=== PATIENT | female | born 1980 | race Caucasian/White ===

== ENCOUNTER 2020-08-07 06:31 | Emergency (ER) | payer MEDICAID, SELFPAY ==
[2020-08-07 06:36] VITALS: PULSE 105; RESP 20; TEMP 36.2; O2SAT 98
[2020-08-07 07:00] LABS: Basophils Percent Auto 0.3 % (0.2-1.2); Hematocrit 44.3 % (37.0-47.0); Hemoglobin 15.3 g/dL (12.0-15.0); Immature Granulocyte Absolute 0.04 K/mm3 (0.00-0.031); Immature Granulocyte Percent A 0.3 % (0-0.5); Lymphocytes Absolute Auto 2.14 K/mm3 (0.9-3.2); Lymphocytes Percent Auto 18.5 % (18.3-44.2); Mean Corpuscular HGB Conc 34.5 g/dl (32-36); Mean Corpuscular Hemoglobin 29.4 pg (26-34); Mean Corpuscular Volume 85.2 fl (80-100); Monocytes Absolute Auto 0.8 K/mm3 (0.1-0.6); Monocytes Percent Auto 6.7 % (2.6-8.5); Neutrophils Absolute Auto 8.6 K/mm3 (1.3-6.7); Neutrophils Percent Auto 74.2 % (45.5-73.1); Platelet Count Result 447 k/mm3 (150-375); Red Cell Distribution Width 12.5 % (11.5-14.5); White Blood Count 11.6 K/mm3 (4.5-10.0)
--- NOTE | 2020-08-07 07:13 | ED.NAVMDI ---
HPI - Nausea/Vomiting/Diarrhea General Chief complaint: Nausea/Vomiting/Diarrhea Stated complaint: n/v Time Seen by Provider: 08/07/20 07:06 Source: patient Mode of arrival: ambulatory Limitations: no limitations History of Present Illness HPI Narrative: Patient is a 40-year-old female who presents for evaluation of nausea and vomiting. Patient states she has had 48 hours of recurrent nausea and vomiting. She reports generalized abdominal discomfort without any focal pain. She reports nonbloody, nonbilious emesis and inability to tolerate any oral intake. She denies fever or chills. She denies diarrhea. She reports she has had some flatulence. She denies any cough, chest pain or shortness of breath. She denies any [place] urinary symptoms such as dysuria or hematuria. No vaginal bleeding. Patient states she has a history of PCOS but denies any lower pelvic pain or back pain. Patient states she has been unable to keep her bipolar medications down causing all of her symptoms to worsen. Related Data Allergies Allergy/AdvReac Type Severity Reaction Status Date / Time carbamazepine Allergy Unknown Abdominal Verified 08/07/20 06:42 Pain oxcarbazepine Allergy Unknown Unknown Verified 08/07/20 06:42 topiramate Allergy Unknown Unknown Verified 08/07/20 06:42 Review of Systems Review of Systems: Narrative: CONSTITUTIONAL: Denies fever, chills, or sweats. EYES: Denies visual changes, redness, or discharge. ENT: Denies rhinorrhea, congestion, sore throat, or otalgia. CARDIOVASCULAR: Denies chest pain, palpitations, or edema. RESPIRATORY: Denies cough or dyspnea. GASTROINTESTINAL: Reports generalized abdominal pain, nausea and vomiting without diarrhea. GENITOURINARY: Denies dysuria or hematuria. SKIN: Denies rash or itching. MUSCULOSKELETAL: Denies back pain, joint pain, or myalgia. NEUROLOGIC: Denies headache, numbness, or weakness. [facility] Past Medical History Medical History (Updated 08/07/20 @ 09:02 by Rosio Arguello MD) Bipolar disorder Surgical History Surgical History (Updated 08/07/20 @ 07:55 by Rosio Arguello MD) History of removal of ovarian cyst Social History Social History (Updated 08/07/20 @ 07:56 by Rosio Arguello MD) Smoking status: Current every day smoker Tobacco type: e-cigarettes/vaping Alcohol intake: never Substance use: never Living arrangements: with family Gender identity (if verbalized by the patient): Female Exam Narrative: Exam Narrative: GENERAL: Awake, alert, conversant HEAD: Normocephalic, atraumatic. EYES: PERRLA and EOMI. ENT: Nares clear, no rhinorrhea or epistaxis. Mucous membranes moist. NECK: Supple. CHEST: No respiratory distress, breathing even and non labored HEART: Regular rate, sinus rhythm ABDOMEN:Non distended, non tender EXTREMITIES: Normal range of motion. No edema. SKIN: Scattered ecchymoses to bilateral upper and lower extremities as well as excoriated areas consistent with pick tony NEURO:No focal deficits. Alert and oriented x3 Course Vital Signs Vital signs: Vital Signs Temperature 36.2 C L 08/07/20 06:36 Pulse Rate 105 H 08/07/20 06:36 Respiratory Rate 20 08/07/20 06:36 Pulse Oximetry 98 08/07/20 06:36 Temperature 36.2 C L 08/07/20 06:36 Pulse Rate 89 08/07/20 07:44 Respiratory Rate 17 08/07/20 07:44 Blood Pressure 161/98 H 08/07/20 07:44 Pulse Oximetry 100 08/07/20 07:44 MDM - Nausea/Vomiting/Diarrhea MDM Narrative Medical decision making narrative: Patient presented for intractable nausea and vomiting as well as some cramping abdominal pain. At the time of assessment, ABCs are intact and vital signs are stable. Patient does not have any truly focal tenderness on exam. Laboratory results show mild leukocytosis. No acute kidney injury or elevation in lipase. Mild hypokalemia. Patient refused nursing staff giving the patient IV fluids, antiemetic or pain medication. I spoke with the patient she
[2020-08-07 07:16] LABS: Alanine Aminotransferase 21 U/L (4-35); Albumin Level 4.9 g/dL (3.5-5.1); Alkaline Phosphatase 78 U/L (38-126); Anion Gap 14 mmol/L (8-16); Aspartate Amino Transferase 20 U/L (14-36); Bilirubin,Total 0.6 mg/dL (0.2-1.3); Blood Urea Nitrogen 17 mg/dL (7-17); Carbon Dioxide 28 mmol/L (22-30); Chloride 97 mmol/L (98-107); Estimated CRCL calculation 117 ml/min; Estimated Glomerular Filt Rate > 60; Glucose 149 mg/dL (65-105); Lipase 56 U/L (23-300); Sodium 139 mmol/L (137-145)
[2020-08-07 07:43] VITALS: BP 141/111; BP 162/93; BP 162/98; PULSE 106; PULSE 90; PULSE 99
[2020-08-07 07:44] VITALS: BP 161/98; PULSE 89; RESP 17; O2SAT 100
[2020-08-07 07:59] LABS: Add Urine Microscopic? YES; Appearance Urine Clear (Clear); Bilirubin Urine Negative (Negative); Blood Urine 1+ (Negative); Color Urine Yellow (Yellow); Glucose Urine UA Negative (Negative); Ketones Urine 2+ mg/dL (Negative); Leukocyte Esterase Ur Negative LEU/UL (Negative); Mucus Urine Heavy /lpf; Nitrate Urine Negative (Negative); Protein Urine 3+ mg/dL (Negative); Squamous Epithelial Cell Urine Many /hpf (Few); WBC Urine 0-3 /hpf
--- NOTE | 2020-08-07 08:50 | PC.NURSE ---
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 PT STILL STATES SHE WANTS TO LEAVE BECAUSE SHE HAS BEEN HERE 4 HOURS AND NOT BEED HELPED, AFTER CHECKIN PT HAS BEEN IN ED FOR 2 HOURS. LEATHA ROBERTS INFORMED AND WENT TO BEDSIDE, PT STILL ASKIN TO LEAVE, REFUSING TO LET MYSELF STORM SASH MAKERILIANA WAGNER TO REMOVE IV, NUCLEAR POWERPLANT MECHANIC CAROL AT BEDSIDE D/C'ING IV AND SENDING PT.
--- NOTE | 2020-08-07 09:06 | PC.NURSE ---
0852 PT STATING SHE JUST WANTED TO GO HOME,DIDN'T WANT TO STAY HERE ANY LONGER,MD AWARE. PT SIGNED OUT RE[facility] DC'D INTACT.
== END 2020-08-07 08:52 | disposition left against medical advice (07) ==
PROVIDERS: General Practice; Emergency Provider Emergency Medicine
DX: R11.2 Nausea with vomiting, unspecified (principal); F17.290 Nicotine dependence, other tobacco product, uncomplicated
CPT/HCPCS: 36415; 80053; 81001; 83690; 85025; 99283

== ENCOUNTER 2022-07-19 14:42 | Emergency (ER) | payer BC, SELFPAY ==
--- NOTE | ~2022-07-19 | CT_ITS ---
EXAMINATION: CT abdomen pelvis w con DATE: 07/19/2022 15:41 INDICATION: Right lower quadrant abdominal pain TECHNIQUE: Computed tomography (CT) of the abdomen and pelvis was performed with 100 CC Omnipaque 350 intravenous contrast. Automated exposure control and iterative reconstruction technique were employe d. Exam dose: 621.40 mGy-cm total exam DLP. COMPARISON: None. FINDINGS: Occasional calcified pulmonary granulomas and calcified right hilar nodes consistent with o ld pulmonary granulomatous disease. Calcified hepatic and splenic granulomas are also noted. The lung bases are clear of infiltrate or consolidation. Normal heart size. No pericardial or pleural effusion. Status post cholecystectomy. This likely accounts for mild prominence of the intrahepatic bile ducts. No hepatic, splenic, pancreatic, adrenal or suspicious renal space occupying mass lesion is detected . No urinary tract calculus or hydroureteronephrosis. The urinary bladder is unremarkable. Retroverte d uterus. No adnexal mass lesion is noted. There is atherosclerotic calcification but normal caliber of the abdominal aorta. No intraperitoneal or retroperitoneal or pelvic mass lesion or adenopathy or ascites. No evidence of appendicitis. No bowel obstruction, bowel wall thickening, pneumatosis or intraperiton eal free air. No suspicious osteolytic or osteoblastic lesions. Included skeletal structures are unremarkable. IMPRESSION: Status post cholecystectomy Retroverted uterus No evidence of appendicitis Reviewed, dictated and finalized at [facility]. Reviewed, dictated and finalized at [facility].
[2022-07-19 14:29] VITALS: BP 142/80; PULSE 98; RESP 16; TEMP 36.8; O2SAT 99
--- NOTE | 2022-07-19 14:43 | ED.ABDPAIN ---
HPI - Abdominal Pain General Chief Complaint: Abdominal Pain Stated Complaint: RLQ pain Time Seen by Provider: 07/19/22 14:43 Source: patient and family Mode of arrival: ambulatory Limitations: no limitations History of Present Illness HPI narrative: 42 years old white female came to the emergency room private car from home complaining of nausea, vomiting and diarrhea over the last 48 hours, vomiting on average 3-4 times a day, diarrhea is a lot. Today feeling much better, one-time episode of diarrhea, no vomiting. Patient denies any fever or chills or sick exposure. Today started having pain right lower abdomen radiating to right lower back, leg cramps. Related Data Allergies Allergy/AdvReac Type Severity Reaction Status Date / Time carbamazepine Allergy Unknown Abdominal Verified 08/07/20 06:42 Pain oxcarbazepine Allergy Unknown Unknown Verified 08/07/20 06:42 topiramate Allergy Unknown Unknown Verified 08/07/20 06:42 Review of Systems Review of Systems: All systems reviewed & are unremarkable except as noted in HPI and below PMFSH Past Medical History Medical History Bipolar disorder Surgical History Surgical History History of removal of ovarian cyst Social History Social History Smoking status: Current every day smoker Tobacco type: e-cigarettes/vaping Alcohol intake: never Substance use: never Gender identity (if verbalized by the patient): Female Exam Narrative: General appearance: Well-developed, well-nourished Skin: Normal color Head: Normocephalic, nontraumatic Eyes: Clear conjunctiva ENT: Oropharynx normal, ears normal, nose normal Neck: Supple, nontender Chest and respiratory: Airway patent, no respiratory distress, no accessory muscle use Heart: Regular rate/rhythm Abdomen: Soft, mild diffuse tenderness,, no organomegaly, quiet bowel sounds Vascular: Normal peripheral pulses, normal capillary refill. Musculoskeletal: Normal range of motion, nontender back Neurologic: Alert and oriented ?3, DELIVERER MERCHANDISE is normal as tested, no gross motor deficit Course Course Emergency Course: Work-up today showed no acute abnormality to explain patient condition. Gastroenteritis is my concern, is improving. Vital Signs Vital signs: Vital Signs Temperature 36.8 C 10/26/22 14:29 Pulse Rate 98 07/19/22 14:29 Respiratory Rate 16 07/19/22 14:29 Blood Pressure 142/80 H 07/19/22 14:29 Pulse Oximetry 99 07/19/22 14:29 Temperature 36.8 C 07/19/22 14:29 Pulse Rate 98 07/19/22 14:29 Respiratory Rate 16 07/19/22 14:29 Blood Pressure 142/80 H 07/19/22 14:29 Pulse Oximetry 99 07/19/22 14:29 MDM - Abdominal Pain Differential Diagnosis Differential diagnosis: Likely abdominal pain, acute appendicitis, constipation, diverticulitis and pancreatitis Lab Data Result diagrams: 07/19/22 14:54 07/19/22 14:54 Labs: Lab Results 07/19/22 07/19/22 07/19/22 Range/Units 14:54 14:54 14:54 WBC 8.0 (4.5-10.0) K/mm3 RBC 4.81 (4.2-5.4) M/mm3 Hgb 13.5 (12.0-15.0) g/dL Hct 41.5 (37.0-47.0) % MCV 86.3 (80-100) fl MCH 28.1 (26-34) pg MCHC 32.5 (32-36) g/dl RDW 13.7 (11.5-14.5) % Plt Count 372 (150-375) k/mm3 MPV 9.8 (7.4-10.4) fl Immature Gran % (Auto) 0.3 (0-0.5) % Neut % (Auto) 61.9 (45.5-73.1) % Lymph % (Auto) 28.1 (18.3-44.2) % [place] % (Auto) 8.3 (2.6-8.5) % Eos % (Auto) 0.6 (0-4.4) % Baso % (Auto) 0.8 (0.2-1.2) % Lymph # (Auto) 2.23
[2022-07-19] MEDS: HYDROmorphone HCL INJ (*CRX) 1 MG/ML SYR 0.5 MG IV PUSH (14:58)
[2022-07-19] MEDS: ONDANSETRON INJ 4 MG/2 ML VIAL IV PUSH (14:58)
[2022-07-19] MEDS: SODIUM CHLORIDE 0.9% IV 1,000 ML 999 ML IV CONT (14:58)
[2022-07-19 15:05] LABS: Basophils Absolute Auto 0.1 K/mm3 (0.0-0.1); Basophils Percent Auto 0.8 % (0.2-1.2); Eosinophils Absolute Auto 0.1 K/mm3 (0-0.3); Eosinophils Percent Auto 0.6 % (0-4.4); Hematocrit 41.5 % (37.0-47.0); Hemoglobin 13.5 g/dL (12.0-15.0); Immature Granulocyte Absolute 0.02 K/mm3 (0.00-0.031); Immature Granulocyte Percent A 0.3 % (0-0.5); Lymphocytes Absolute Auto 2.23 K/mm3 (0.9-3.2); Lymphocytes Percent Auto 28.1 % (18.3-44.2); Mean Corpuscular HGB Conc 32.5 g/dl (32-36); Mean Corpuscular Hemoglobin 28.1 pg (26-34); Mean Corpuscular Volume 86.3 fl (80-100); Mean Platelet Volume 9.8 fl (7.4-10.4); Monocytes Absolute Auto 0.7 K/mm3 (0.1-0.6); Monocytes Percent Auto 8.3 % (2.6-8.5); Neutrophils Absolute Auto 4.9 K/mm3 (1.3-6.7); Neutrophils Percent Auto 61.9 % (45.5-73.1); Platelet Count Result 372 k/mm3 (150-375); Red Blood Count 4.81 M/mm3 (4.2-5.4); Red Cell Distribution Width 13.7 % (11.5-14.5)
[2022-07-19 15:11] LABS: Add Urine Microscopic? YES; Appearance Urine Cloudy (Clear); Bacteria Urine Trace /hpf; Bilirubin Urine Negative (Negative); Blood Urine Negative (Negative); Color Urine Yellow (Yellow); Glucose Urine UA Negative (Negative); Ketones Urine 1+ mg/dL (Negative); Leukocyte Esterase Ur Negative LEU/UL (Negative); Mucus Urine Rare /lpf; Nitrate Urine Negative (Negative); Protein Urine Negative (Negative); Specific Grav Ur 1.017 (1.001-1.035); Squamous Epithelial Cell Urine Many /hpf (Few); Urobilinogen Urine Negative mg/dL (<2.0); WBC Urine 0-3 /hpf
[2022-07-19 15:17] LABS: Alanine Aminotransferase 25 U/L (6-35); Albumin Level 4.6 g/dL (3.5-5.1); Alkaline Phosphatase 56 U/L (38-126); Anion Gap 13 mmol/L (8-16); Aspartate Amino Transferase 22 U/L (14-36); Bilirubin,Total 0.3 mg/dL (0.2-1.3); Blood Urea Nitrogen 7 mg/dL (7-17); Calcium 8.8 mg/dL (8.4-10.2); Carbon Dioxide 23 mmol/L (22-30); Chloride 104 mmol/L (98-107); Estimated CRCL calculation 98 ml/min; Estimated Glomerular Filt Rate > 60; Glucose 113 mg/dL (65-110); Lipase 103 U/L (23-300); Potassium 3.5 mmol/L (3.4-5.0); Sodium 140 mmol/L (137-145)
[2022-07-19 16:45] VITALS: BP 142/90; PULSE 80; RESP 16; O2SAT 98
== END 2022-07-19 16:50 | disposition home or self-care (01) ==
PROVIDERS: Emergency Medicine; Emergency Provider Emergency Medicine
DX: K52.9 Noninfective gastroenteritis and colitis, unspecified (principal); F17.290 Nicotine dependence, other tobacco product, uncomplicated; N85.4 Malposition of uterus
CPT/HCPCS: 36415; 74177; 80053; 81001; 81025; 83690; 85025; 96361; 96374; 96375; 99284; J1170; J2405; J7030; Q9967

== ENCOUNTER 2022-07-23 05:58 | Emergency (ER) | payer BC, SELFPAY ==
--- NOTE | ~2022-07-23 | US_ITS ---
EXAMINATION: US pelvic complete w TV DATE: 07/23/2022 08:34 INDICATION: Right adnexal pain Comparison:No prior studies for comparison. TECHNIQUE: Multiple transabdominal and endovaginal sonographic images of the pelvis performed. FINDINGS: The uterus measures 7 x 4.4 x 5.2 cm. The endometrial complex measures 7 mm. The right ovary measures 3.8 x 1.4 x 1.5 cm and the left ovary is not visualized.. There are follicul ar changes in the right ovary. There is no free fluid in the pelvis. There are no abnormal masses seen on either side. IMPRESSION: 1. Unremarkable pelvic ultrasound. Reviewed, dictated and finalized at location [facility].
--- NOTE | ~2022-07-23 | CT_ITS ---
EXAMINATION: CT abdomen pelvis w con DATE: 07/23/2022 09:54 INDICATION: Right lower quadrant pain. Nausea and vomiting. TECHNIQUE: Computed tomography (CT) of the abdomen and pelvis was performed with 100 cc Omnipaque 350 intravenous contrast. The dose-length product was 689.61 mGy-cm. Automated exposure control and iter ative reconstruction technique were employed. COMPARISON: CT dated 07/19/2022 FINDINGS: Lung bases are unremarkable. No significant pleural or pericardial effusion. There is mild atherosclerosis of the aorta. The liver is unremarkable. Status post cholecystectomy with expected pr ominence of the bile ducts. There are calcified granulomas of the spleen. The pancreas, adrenal gland s and kidneys are unremarkable. No hydronephrosis. Bladder is unremarkable. No significant pelvic mas ses or fluid collections. Nonobstructive bowel gas pattern. The appendix is normal. No free air or fr ee fluid. There is mild thickening of the ascending and transverse colon, suspicious for colitis. IMPRESSION: 1. Mild thickening of the ascending and transverse colon, suspicious for colitis. Reviewed, dictated and finalized at location [facility]. IMPRESSION: 1. Mild thickening of the ascending and transverse colon, suspicious for coliti s.
[2022-07-23 06:46] VITALS: BP 168/90; PULSE 70; RESP 14; TEMP 36.9; O2SAT 98
[2022-07-23] MEDS: MORPHINE SULFATE (*CRX) 4 MG/ML INJ IV PUSH ×2 (07:53→10:38)
[2022-07-23] MEDS: ONDANSETRON INJ 4 MG/2 ML VIAL IV PUSH (07:53)
[2022-07-23 07:59] LABS: Basophils Absolute Auto 0.1 K/mm3 (0.0-0.1); Basophils Percent Auto 0.6 % (0.2-1.2); Eosinophils Absolute Auto 0.1 K/mm3 (0-0.3); Eosinophils Percent Auto 0.5 % (0-4.4); Hematocrit 40.1 % (37.0-47.0); Immature Granulocyte Absolute 0.03 K/mm3 (0.00-0.031); Immature Granulocyte Percent A 0.3 % (0-0.5); Lymphocytes Absolute Auto 1.88 K/mm3 (0.9-3.2); Lymphocytes Percent Auto 18.8 % (18.3-44.2); Mean Corpuscular HGB Conc 32.4 g/dl (32-36); Mean Corpuscular Hemoglobin 28.1 pg (26-34); Mean Corpuscular Volume 86.8 fl (80-100); Mean Platelet Volume 10.1 fl (7.4-10.4); Monocytes Absolute Auto 0.5 K/mm3 (0.1-0.6); Monocytes Percent Auto 4.6 % (2.6-8.5); Neutrophils Absolute Auto 7.5 K/mm3 (1.3-6.7); Neutrophils Percent Auto 75.2 % (45.5-73.1); Platelet Count Result 353 k/mm3 (150-375); Red Blood Count 4.62 M/mm3 (4.2-5.4); Red Cell Distribution Width 14.2 % (11.5-14.5)
[2022-07-23 08:00] LABS: Appearance Urine Clear (Clear); Bilirubin Urine Negative (Negative); Blood Urine Negative (Negative); Color Urine Yellow (Yellow); Glucose Urine UA Negative (Negative); Ketones Urine Negative (Negative); Leukocyte Esterase Ur Negative LEU/UL (Negative); Nitrate Urine Negative (Negative); Protein Urine Negative (Negative); Urobilinogen Urine 0.2 mg/dL (<2.0); pH Urine 8.5 (5.0-9.0)
[2022-07-23 08:02] LABS: Add Urine Microscopic? NO
[2022-07-23 08:08] LABS: Alanine Aminotransferase 20 U/L (6-35); Albumin Level 4.3 g/dL (3.5-5.1); Alkaline Phosphatase 58 U/L (38-126); Anion Gap 8 mmol/L (8-16); Aspartate Amino Transferase 21 U/L (14-36); Bilirubin,Total 0.3 mg/dL (0.2-1.3); Blood Urea Nitrogen 9 mg/dL (7-17); Calcium 9.2 mg/dL (8.4-10.2); Carbon Dioxide 26 mmol/L (22-30); Chloride 107 mmol/L (98-107); Estimated CRCL calculation 99 ml/min; Estimated Glomerular Filt Rate > 60; Glucose 105 mg/dL (65-110); Lipase 122 U/L (23-300); Potassium 3.7 mmol/L (3.4-5.0); Sodium 141 mmol/L (137-145)
[2022-07-23 08:23] VITALS: TEMP 36.5
[2022-07-23 10:11] VITALS: BP 174/86; PULSE 66; RESP 18; TEMP 36.5; O2SAT 100
--- NOTE | 2022-07-23 10:43 | ED.ABDPAIN ---
HPI - Abdominal Pain General Chief Complaint: Abdominal Pain Stated Complaint: RLQ abd pain, N/V/D Time Seen by Provider: 07/23/22 07:09 History of Present Illness HPI narrative: Patient is a 42-year-old female who presents ER with right-sided abdominal pain. Came back throughout the night. Cramping and the right upper quadrant moving to the right lower quadrant. Associated with nausea and vomiting as well as some diarrhea. She had similar symptoms a couple days ago. Has CT scan that was unremarkable. Patient reports history of PCOS. No vaginal bleeding or discharge. No urinary frequency urgency or dysuria. Has found no alleviating factors at home except for laying on her right side. Related Data Allergies Allergy/AdvReac Type Severity Reaction Status Date / Time carbamazepine Allergy Unknown Abdominal Verified 08/07/20 06:42 Pain oxcarbazepine Allergy Unknown Unknown Verified 08/07/20 06:42 topiramate Allergy Unknown Unknown Verified 08/07/20 06:42 Review of Systems Review of Systems: All systems reviewed & are unremarkable except as noted in HPI and below Constitutional: Constitutional: Denies chills, Denies fatigue and Denies fever(s) ENT: Denies nasal congestion and Denies sore throat Cardiovascular: Cardiovascular: Denies chest pain, Denies rapid heart rate and Denies radiating jaw, neck or arm pain Respiratory: Respiratory: Denies cough and Denies dyspnea Gastrointestinal: Gastrointestinal: Reports abdominal pain, Reports diarrhea, Reports nausea and Reports vomiting Genitourinary: Genitourinary: Denies dysuria and Denies flank pain Musculoskeletal: Musculoskeletal: Denies back pain and Denies myalgias PMFSH Past Medical History Medical History Bipolar disorder Surgical History Surgical History History of removal of ovarian cyst Social History Social History Smoking status: Current every day smoker Tobacco type: e-cigarettes/vaping Alcohol intake: never Substance use: never Gender identity (if verbalized by the patient): Female Exam Narrative: GENERAL: Uncomfortable-appearing, well-nourished, and in no acute distress. HEAD: Normocephalic, atraumatic. EYES: PERRLA and EOMI. ENT: Poor dentition mucous membranes moist. CHEST: Clear to auscultation. No respiratory distress. HEART: Regular rate and rhythm. Normal peripheral pulses. ABDOMEN: Soft, nontender, nondistended. EXTREMITIES: Normal range of motion. No edema. SKIN: Warm, dry, no rash. NEURO: Alert and oriented x3. PSYCH: Normal mood and affect. Course Course Emergency Course: Patient informed of results. Discussed treatment plan. Discharge home. Vital Signs Vital signs: Vital Signs Temperature 98.4 F 07/23/22 06:46 Pulse Rate 70 07/23/22 06:46 Respiratory Rate 14 07/23/22 06:46 Blood Pressure 168/90 H 07/23/22 06:46 Pulse Oximetry 98 07/23/22 06:46 Temperature 97.7 F 07/23/22 10:11 Pulse Rate 66 07/23/22 10:11 Respiratory Rate 18 07/23/22 10:11 Blood Pressure 174/86 H 07/23/22 10:11 Pulse Oximetry 100 07/23/22 10:11 MDM - Abdominal Pain Lab Data Result diagrams: 07/23/22 07:53 07/23/22 07:53 Labs: Lab Results 07/23/22 07/23/22 07/23/22 Range/Units 07:53 07:53 07:53 WBC 10.0 (4.5-10.0) K/mm3 RBC 4.62 (4.2-5.4) M/mm3 Hgb 13.0 (12.0-15.0) g/dL Hct 40.1 (37.0-47.0) % MCV 86.8 (80-100) fl MCH 28.1 (26-34) pg MCHC 32.4 (32-36) g/dl RDW 14.2 (11.5-14.5) % Plt Count 353 (150-375) k/mm3 MPV 10.1 (7.4-10.4) fl Immature Gran % (Auto) 0.3 (0-0.5) % Neut % (Auto) 75.2 H (45.5-73.1) % Lymph % (Auto) 18.8 (18.3-44.2) % [place] % (Auto) 4.6 (2.6-8.5) % Eos % (Auto) 0.5 (0-4.4) % Baso % (Auto) 0.6 (0.2-1.2) % Lymp
[2022-07-23] MEDS: DICYCLOMINE HCL INJ 20 MG/2 ML VIAL IM (11:22)
== END 2022-07-23 11:45 | disposition home or self-care (01) ==
PROVIDERS: Emergency Provider Emergency Medicine
DX: K52.9 Noninfective gastroenteritis and colitis, unspecified (principal); F17.290 Nicotine dependence, other tobacco product, uncomplicated
CPT/HCPCS: 36415; 74177; 76830; 76856; 80053; 81003; 81025; 83690; 85025; 96372; 96374; 96375; 96376; 99284; J0500; J2270; J2405; Q9967

== ENCOUNTER 2022-07-30 05:11 | Emergency (ER) | payer BC, SELFPAY ==
[2022-07-30 05:10] VITALS: BP 174/94; PULSE 96; RESP 20; TEMP 36.7; O2SAT 99
--- NOTE | 2022-07-30 05:36 | ED.GENADULT ---
HPI - General Adult General Chief complaint: Abdominal Pain Stated complaint: abd pain History of Present Illness HPI narrative: This is a 42-year-old female presenting ED with right lower quadrant abdominal pain. patient says the pain is been going on for 2 weeks. It is a stabbing in the right lower quadrant that radiates to her back. It is 8/10 in intensity. The pain is always there but fluctuates in intensity. She has never experienced pain like this before. patient says the pain is improved by lying down. It is worsened by eating. Patient reports some nausea but no vomiting. She did have an episode of diarrhea. She denies fever or chills. Related Data Allergies Allergy/AdvReac Type Severity Reaction Status Date / Time carbamazepine Allergy Unknown Abdominal Verified 07/30/22 05:17 Pain oxcarbazepine Allergy Unknown Unknown Verified 07/30/22 05:17 topiramate Allergy Unknown Unknown Verified 07/30/22 05:17 Review of Systems Review of Systems: CONSTITUTIONAL: Denies night sweats. EYES: No eye pain ENT: Denies rhinorrhea CARDIOVASCULAR: Denies palpitations RESPIRATORY: Denies hemoptysis GASTROINTESTINAL: Denies hematemesis GENITOURINARY: Denies hematuria. SKIN: Denies rash MUSCULOSKELETAL: Denies myalgia. NEUROLOGIC: Denies weakness. PSYCHIATRIC: Denies delusions PMFSH Past Medical History Medical History Bipolar disorder Surgical History Surgical History History of removal of ovarian cyst Social History Social History Smoking status: Current every day smoker Tobacco type: e-cigarettes/vaping Alcohol intake: never Substance use: never Gender identity (if verbalized by the patient): Female Exam Narrative: APPEARANCE: Patient appears uncomfortable Head: atraumatic. Poor dentition EYES: EOMI, NOSE: Atraumatic NECK: Trachea midline RESPIRATORY: No increased rate of breathing CARDIOVASCULAR: RRR, ABDOMINAL: abdomen is soft, with mild tenderness in the right lower quadrant with no guarding or rebound. MUSCULOSKELETAl: No obvious deformities NEURO: Alert. Moving 4/4 extremities SKIN:: Warm, dry. Normal color, healing scabs over her right hand PSYCHIATRIC: Normal affect Course Vital Signs Vital signs: Vital Signs Temperature 98.1 F 07/30/22 05:10 Pulse Rate 96 07/30/22 05:10 Respiratory Rate 20 07/30/22 05:10 Blood Pressure 174/94 H 07/30/22 05:10 Pulse Oximetry 99 07/30/22 05:10 Oxygen Delivery Room Air 07/30/22 05:10 Temperature 98.1 F 07/30/22 05:10 Pulse Rate 96 07/30/22 05:10 Respiratory Rate 20 07/30/22 05:10 Blood Pressure 174/94 H 07/30/22 05:10 Pulse Oximetry 99 07/30/22 05:10 Oxygen Delivery Room Air 07/30/22 05:10 Medical Decision Making MDM Narrative Medical decision making narrative: this is a 42-year-old female who re-presented to the ED with abdominal pain. This is the 3rd time she has been seen here for the same complaint. She has received [address] scans a transvaginal ultrasound. Latest CT scan did show some mild thickening of the ascending and transverse colon which are consistent with where the patient's symptoms are. Her abdominal exam is benign. I do not believe there is a benefit to exposing her to more radiation. She was treated with dicyclomine at that time but has not been able to control her pain. Basic lab work has been ordered. All the patient's lab work was normal. Her vital signs are normal. Her abdominal exam is still benign. She has not developed a fever white blood cell count indicating she may need need antibiotics for her colitis.She is tearful when I go speak with her saying that her pain is unbearable. Patient will be given a script of [place], dicyclomine and zofran. She would also like a note for work. Patient nemo
[2022-07-30] MEDS: HYDROcodone/acetaminophen (*CRX) 5-325 MG TABLET 1 TAB PO (05:39)
[2022-07-30 05:41] LABS: Glucose Point of Care 89 mg/dl (65-105)
[2022-07-30 05:54] LABS: Basophils Absolute Auto 0.1 K/mm3 (0.0-0.1); Eosinophils Absolute Auto 0.1 K/mm3 (0-0.3); Eosinophils Percent Auto 2.1 % (0-4.4); Hemoglobin 12.6 g/dL (12.0-15.0); Immature Granulocyte Absolute 0.02 K/mm3 (0.00-0.031); Immature Granulocyte Percent A 0.3 % (0-0.5); Lymphocytes Absolute Auto 1.93 K/mm3 (0.9-3.2); Lymphocytes Percent Auto 33.2 % (18.3-44.2); Mean Corpuscular HGB Conc 31.5 g/dl (32-36); Mean Corpuscular Volume 88.9 fl (80-100); Mean Platelet Volume 10.1 fl (7.4-10.4); Monocytes Absolute Auto 0.4 K/mm3 (0.1-0.6); Neutrophils Absolute Auto 3.3 K/mm3 (1.3-6.7); Neutrophils Percent Auto 56.4 % (45.5-73.1); Platelet Count Result 358 k/mm3 (150-375); Red Cell Distribution Width 14.1 % (11.5-14.5); White Blood Count 5.8 K/mm3 (4.5-10.0)
[2022-07-30 06:04] LABS: Lipase 98 U/L (23-300)
[2022-07-30 06:05] LABS: Alanine Aminotransferase 26 U/L (6-35); Albumin Level 4.2 g/dL (3.5-5.1); Alkaline Phosphatase 57 U/L (38-126); Anion Gap 8 mmol/L (8-16); Aspartate Amino Transferase 27 U/L (14-36); Bilirubin,Total 0.2 mg/dL (0.2-1.3); Blood Urea Nitrogen 12 mg/dL (7-17); Calcium 8.7 mg/dL (8.4-10.2); Carbon Dioxide 28 mmol/L (22-30); Chloride 106 mmol/L (98-107); Estimated CRCL calculation 87 ml/min; Estimated Glomerular Filt Rate > 60; Glucose 100 mg/dL (65-110); Sodium 142 mmol/L (137-145)
[2022-07-30 06:06] LABS: Appearance Urine Clear (Clear); Bilirubin Urine Negative (Negative); Blood Urine 2+ (Negative); Color Urine Yellow (Yellow); Glucose Urine UA Negative (Negative); Ketones Urine Negative (Negative); Leukocyte Esterase Ur Negative LEU/UL (Negative); Nitrate Urine Negative (Negative); Protein Urine Negative (Negative); Urobilinogen Urine 0.2 mg/dL (<2.0)
[2022-07-30 06:15] LABS: Mucus Urine Rare /lpf; RBC Urine 0-2 /hpf (0-2); Squamous Epithelial Cell Urine Occasional /hpf (Few); WBC Urine 0-3 /hpf
[2022-07-30 06:18] LABS: Add Urine Microscopic? YES
[2022-07-30 06:53] VITALS: BP 148/87; PULSE 74; RESP 16; O2SAT 100
== END 2022-07-30 06:55 | disposition home or self-care (01) ==
PROVIDERS: Emergency Provider Emergency Medicine
DX: K52.9 Noninfective gastroenteritis and colitis, unspecified (principal); F17.290 Nicotine dependence, other tobacco product, uncomplicated
CPT/HCPCS: 36415; 80053; 81001; 81025; 82948; 83690; 83735; 85025; 99283; A9270

== ENCOUNTER 2022-08-02 16:02 | Emergency (ER) | payer BC, SELFPAY ==
--- NOTE | ~2022-08-02 | CT_ITS ---
EXAMINATION: CT abdomen pelvis w con DATE: 08/02/2022 20:37 INDICATION: low abd pain, diarrhea, vomiting TECHNIQUE: Computed tomography (CT) of the abdomen and pelvis was performed with 100 mL Omnipaque-350 intravenous contrast. Automated exposure control and iterative reconstruction technique were employe d. The dose-length product was 668.86 mGy-cm. COMPARISON: 07/23/2022. FINDINGS: Lower thorax: Unremarkable Liver: Normal. Biliary/Gallbladder: Gallbladder is absent. No bile duct dilation. Pancreas: No mass or duct dilation. Spleen: Normal. Adrenals:No mass. Kidneys: No mass, stone, or hydronephrosis. GI tract: No small or large bowel dilation. Interval resolution of the previously described transvers e colon edema. Normal appendix. Mesentery/Peritoneum: No ascites, mass, or free air. Retroperitoneum: No mass. Pelvis: Pelvic organs are within normal limits. Soft Tissues: Soft tissues and body wall unremarkable. Bones: No acute osseous finding. IMPRESSION: No acute abdominopelvic process detected. Reviewed, dictated and finalized at location K. CTION MOLDER
--- NOTE | ~2022-08-02 | XR_ITS ---
EXAMINATION: XR chest 2V Exam Date/Time: 08/02/2022 18:30 OIL FIELD PUMPER HISTORY: chest pressure x today. pt notes having anxiety all day Comparison: 04/09/2015. RESULT: Lines, tubes, and devices: None. Lungs and pleura: Clear. Right midlung calcified granuloma Cardiomediastinal silhouette: Stable. Other: No acute osseous or upper abdominal finding. IMPRESSION: No acute cardiopulmonary process. Reviewed, dictated and finalized at location K. FIELD PUMPER
[2022-08-02 17:44] VITALS: BP 169/99; PULSE 108; RESP 14; TEMP 36.8; O2SAT 98
--- NOTE | 2022-08-02 17:47 | ECG_ITS ---
Measurements Intervals [place] Rate: 102 P: 78 IL: 136 QRS: 38 QRSD: 85 T: 27 QT: 341 QTc: 446 Interpretive Statements SINUS TACHYCARDIA POSSIBLE RIGHT ATRIAL ENLARGEMENT BORDERLINE ST ABNORMALITY- ANTEROLAT/INF LEADS BASELINE ARTIFACT- I, II, III, AVR, AVL BORDERLINE ECG NO PREVIOUS ECG AVAILABLE FOR COMPARISON Electronically Signed On 08-02-2022 20:07:20 [employer] by Venkat Zapata D.O.
[2022-08-02 18:09] LABS: Basophils Absolute Auto 0.1 K/mm3 (0.0-0.1); Basophils Percent Auto 0.4 % (0.2-1.2); Eosinophils Absolute Auto 0.1 K/mm3 (0-0.3); Eosinophils Percent Auto 0.5 % (0-4.4); Hematocrit 42.4 % (37.0-47.0); Immature Granulocyte Absolute 0.06 K/mm3 (0.00-0.031); Immature Granulocyte Percent A 0.4 % (0-0.5); Lymphocytes Absolute Auto 2.59 K/mm3 (0.9-3.2); Lymphocytes Percent Auto 19.3 % (18.3-44.2); Mean Corpuscular Hemoglobin 28.1 pg (26-34); Mean Corpuscular Volume 85.1 fl (80-100); Monocytes Absolute Auto 0.9 K/mm3 (0.1-0.6); Monocytes Percent Auto 6.6 % (2.6-8.5); Neutrophils Absolute Auto 9.8 K/mm3 (1.3-6.7); Neutrophils Percent Auto 72.8 % (45.5-73.1); Platelet Count Result 507 k/mm3 (150-375); Red Blood Count 4.98 M/mm3 (4.2-5.4); Red Cell Distribution Width 14.1 % (11.5-14.5); White Blood Count 13.5 K/mm3 (4.5-10.0)
[2022-08-02 18:20] LABS: Alanine Aminotransferase 26 U/L (6-35); Albumin Level 4.9 g/dL (3.5-5.1); Alkaline Phosphatase 64 U/L (38-126); Anion Gap 11 mmol/L (8-16); Aspartate Amino Transferase 24 U/L (14-36); Bilirubin,Total 0.4 mg/dL (0.2-1.3); Blood Urea Nitrogen 11 mg/dL (7-17); Calcium 9.4 mg/dL (8.4-10.2); Carbon Dioxide 23 mmol/L (22-30); Chloride 105 mmol/L (98-107); Estimated CRCL calculation 99 ml/min; Estimated Glomerular Filt Rate > 60; Glucose 111 mg/dL (65-110); Lipase 93 U/L (23-300); Potassium 3.5 mmol/L (3.4-5.0); Sodium 139 mmol/L (137-145)
[2022-08-02 18:22] LABS: Partial Thromboplastin Time 31.5 SECONDS (22.3-36.8)
[2022-08-02 18:32] LABS: Troponin I < 0.012 ng/mL (0.000-0.034)
--- NOTE | 2022-08-02 19:49 | ED.ANXIETY ---
HPI - Anxiety General Chief Complaint: Anxiety <Summer Harmon PA-C - Last Filed: 08/02/22 22:27> Stated Complaint: anxiety attack <SATISH Gomez Last Filed: 08/02/22 22:27> Time Seen by Provider: 08/02/22 19:32 <SATISH Gomez Last Filed: 08/02/22 22:27> Source: patient <SATISH Gomez Last Filed: 08/02/22 22:27> Mode of arrival: ambulatory <SATISH Gomez Last Filed: 08/02/22 22:27> Limitations: no limitations <SATISH Gomez Last Filed: 08/02/22 22:27> History of Present Illness HPI narrative: This is a 42-year-old female that presents to the emergency department for anxiety. Reports worsening anxiety due to health issues. She has history of anxiety and bipolar depression. She is not currently on any medications for this. She has no thoughts of harming herself or anyone else. Reports that she has been having trouble with abdominal pain over the last couple of weeks. Her 5 years ago from GI issues that has made her quite anxious. She was seen in the ER 3 days ago and discharged with Sirena Lagunas and [place]. She has been taking these medications with little relief. Reports persistent lower abdominal pain and vomiting. Also reports some intermittent diarrhea. Denies fevers, shortness of breath, dysuria, hematochezia, melena. <SATISH Gomez Last Filed: 08/02/22 22:27> Related Data Allergies/Adverse Reactions: Allergies Allergy/AdvReac Type Severity Reaction Status Date / Time carbamazepine Allergy Unknown Abdominal Verified 07/30/22 05:17 Pain oxcarbazepine Allergy Unknown Unknown Verified 07/30/22 05:17 topiramate Allergy Unknown Unknown Verified 07/30/22 05:17 <SATISH Gomez Last Filed: 08/02/22 22:27> Review of Systems Review of Systems: CONSTITUTIONAL: Denies fever CARDIOVASCULAR: Reports chest pain RESPIRATORY: Denies dyspnea. GASTROINTESTINAL: Reports abdominal pain, nausea, vomiting, and diarrhea. GENITOURINARY: Denies dysuria or hematuria. PSYCHIATRIC: Reports anxiety and depression. <Summer Harmon PA-C - Last Filed: 08/02/22 22:27> All systems reviewed & are unremarkable except as noted in HPI and below <Summer Harmon PA-C - Last Filed: 08/02/22 22:27> PMFSH Past Medical History Medical History: Medical History Bipolar disorder <Summer Harmon PA-C - Last Filed: 08/02/22 22:27> Surgical History Surgical History: Surgical History History of removal of ovarian cyst <Summer Harmon PA-C - Last Filed: 08/02/22 22:27> Social History Social History: Social History (Updated 08/02/22 @ 19:53 by Summer Harmon PA-C) Smoking status: Current every day smoker Tobacco type: e-cigarettes/vaping Alcohol intake: never Substance use: current Substance use type: marijuana Gender identity (if verbalized by the patient): Female <Summer Harmon PA-C - Last Filed: 08/02/22 22:27> Exam Narrative: GENERAL: Well-appearing, well-nourished, anxious HEAD: Normocephalic, atraumatic. EYES: EOMI. CHEST: Clear to auscultation. No respiratory distress. No wheezes rales or rhonchi HEART: Regular rate and rhythm. No murmur heard. Normal peripheral pulses. ABDOMEN: Soft, nondistended, normal active bowel sounds. Mild tenderness to palpation throughout the right side of the abdomen, without guarding EXTREMITIES: Normal range of motion. No edema. SKIN: Warm, dry, no rash. NEURO: No focal deficits. Alert and oriented x3. PSYCH: Anxious, tearful <Summer Harmon PA-C - Last Filed: 08/02/22 22:27> Course FULL TIME PARAMEDIC/PA Physician Supervision For this patient encounter, I reviewed the FULL TIME PARAMEDIC or PA documentation, treatment plan, and medical decision making <Jaydon Ruiz MD - Last Filed: 08/03/22 01:04> Vital Signs Vital signs: Vital Signs
[2022-08-02] MEDS: LORazepam (*CRX) 0.5 MG TABLET PO (20:01)
== END 2022-08-02 22:34 | disposition home or self-care (01) ==
PROVIDERS: Emergency Medicine; Emergency Provider Emergency Medicine; PCP Physician Assistant
DX: F41.9 Anxiety disorder, unspecified (principal); G89.29 Other chronic pain; R10.9 Unspecified abdominal pain; F31.9 Bipolar disorder, unspecified; F17.210 Nicotine dependence, cigarettes, uncomplicated; R00.0 Tachycardia, unspecified; R94.31 Abnormal electrocardiogram [ECG] [EKG]
CPT/HCPCS: 36415; 71046; 74177; 80053; 81025; 83690; 84484; 85025; 85610; 85730; 93005; 99284; A9270; Q9967

== ENCOUNTER 2023-03-26 16:12 | Emergency (ER) | payer BC, SELFPAY ==
--- NOTE | ~2023-03-26 | XR_ITS ---
XR chest 2V DATE: 03/26/2023 16:23 INDICATION: Left chest pain TECHNIQUE: PA and lateral views COMPARISON: 08/12/2022 PA and lateral chest FINDINGS: Normal heart size. Aortic arch calcification. No hilar or mediastinal enlargement. Calcifie d granuloma, right mid lung and calcified right hilar nodes, consistent with old granulomatous diseas e. No pulmonary infiltrate or consolidation, pleural effusion or pulmonary vascular congestion or pneumo thorax. IMPRESSION: No active cardiopulmonary disease Reviewed, dictated and finalized at location A.
[2023-03-26 16:08] VITALS: BP 167/126; PULSE 107; RESP 26; TEMP 36.3; O2SAT 100
--- NOTE | 2023-03-26 16:14 | ECG_ITS ---
Measurements Intervals [place] Rate: 98 P: 54 OR: 153 QRS: 16 QRSD: 94 T: 10 QT: 363 QTc: 465 Interpretive Statements SINUS RHYTHM BORDERLINE ST-T WAVE ABNORMALITY- ANT/INF LEADS BASELINE ARTIFACT- I, II, III, AVR, AVL, AVF BORDERLINE ECG COMPARED TO ECG 08/02/2022 18:01:11 SINUS RHYTHM NOW PRESENT Electronically Signed On 03-26-2023 17:11:06 CDT by Venkat Zapata D.O.
[2023-03-26] MEDS: KETOROLAC 30 MG/ML VIAL (*BKC) IV PUSH (16:23)
[2023-03-26 16:24] VITALS: BP 147/87; PULSE 108; RESP 18; O2SAT 100
[2023-03-26 16:26] LABS: Basophils Absolute Auto 0.1 K/mm3 (0.0-0.1); Basophils Percent Auto 0.7 % (0.2-1.2); Eosinophils Absolute Auto 0.1 K/mm3 (0-0.3); Eosinophils Percent Auto 0.7 % (0-4.4); Hematocrit 36.7 % (37.0-47.0); Hemoglobin 12.3 g/dL (12.0-15.0); Immature Granulocyte Absolute 0.02 K/mm3 (0.00-0.031); Immature Granulocyte Percent A 0.2 % (0-0.5); Lymphocytes Absolute Auto 3.47 K/mm3 (0.9-3.2); Lymphocytes Percent Auto 39.2 % (18.3-44.2); Mean Corpuscular HGB Conc 33.5 g/dl (32-36); Mean Corpuscular Hemoglobin 28.5 pg (26-34); Mean Corpuscular Volume 85.2 fl (80-100); Mean Platelet Volume 9.7 fl (7.4-10.4); Monocytes Absolute Auto 0.8 K/mm3 (0.1-0.6); Monocytes Percent Auto 8.8 % (2.6-8.5); Neutrophils Absolute Auto 4.5 K/mm3 (1.3-6.7); Neutrophils Percent Auto 50.4 % (45.5-73.1); Platelet Count Result 423 k/mm3 (150-375); Red Blood Count 4.31 M/mm3 (4.2-5.4); Red Cell Distribution Width 14.3 % (11.5-14.5); White Blood Count 8.9 K/mm3 (4.5-10.0)
[2023-03-26 16:33] LABS: Alanine Aminotransferase 22 U/L (6-35); Albumin Level 4.2 g/dL (3.5-5.1); Alkaline Phosphatase 58 U/L (38-126); Anion Gap 5 mmol/L (8-16); Aspartate Amino Transferase 23 U/L (14-36); Bilirubin,Total 0.3 mg/dL (0.2-1.3); Blood Urea Nitrogen 12 mg/dL (7-17); Calcium 9.5 mg/dL (8.4-10.2); Carbon Dioxide 32 mmol/L (22-30); Chloride 100 mmol/L (98-107); Estimated CRCL calculation 113 ml/min; Estimated Glomerular Filt Rate > 60; Glucose 103 mg/dL (65-110); Potassium 2.9 mmol/L (3.4-5.0); Prothrombin Time 13.1 Seconds (11.1-14.7); Sodium 137 mmol/L (137-145)
[2023-03-26 16:40] LABS: D Dimer < 0.27 ug/mL (<0.48)
[2023-03-26 16:45] LABS: Troponin I < 0.012 ng/mL (0.000-0.034)
--- NOTE | 2023-03-26 17:41 | ED.GENADULT ---
HPI - General Adult General Chief complaint: Chest Pain Stated complaint: CHEST PAIN History of Present Illness HPI narrative: Patient is a 42-year-old female who presents ER with left-sided chest pain. Sharp. Began in the last 24 hours. Also has some pain in the left posterior back. No pain with deep breath. No exertional chest pain or dyspnea. No hemoptysis or productive cough. Denies fevers or chills or sweats. No known trauma. Patient tried some ibuprofen last night before going to bed and may have had some mild improvement. Reports family history of heart disease but no personal history of heart disease. No other recent changes at home. Related Data Allergies Allergy/AdvReac Type Severity Reaction Status Date / Time carbamazepine Allergy Unknown Abdominal Verified 03/26/23 16:22 Pain oxcarbazepine Allergy Unknown Unknown Verified 03/26/23 16:22 topiramate Allergy Unknown Unknown Verified 03/26/23 16:22 Review of Systems Review of Systems: All systems reviewed & are unremarkable except as noted in HPI and below Constitutional: Constitutional: Denies chills, Denies fatigue and Denies fever(s) ENT: Denies nasal congestion and Denies sore throat Cardiovascular: Cardiovascular: Reports chest pain, Denies rapid heart rate and Reports radiating jaw, neck or arm pain Respiratory: Respiratory: Denies chest congestion, Denies cough, Denies dyspnea and Denies wheezing Gastrointestinal: Gastrointestinal: Denies abdominal pain, Denies nausea and Denies vomiting Genitourinary: Genitourinary: Denies nocturia and Denies dysuria Musculoskeletal: Musculoskeletal: Reports back pain, Denies myalgias, Denies arthralgias and Denies joint swelling PMFSH Past Medical History Medical History Bipolar disorder Surgical History Surgical History History of removal of ovarian cyst Social History Social History (Updated 08/02/22 @ 19:53 by Summer Harmon PA-C) Smoking status: Current every day smoker Tobacco type: e-cigarettes/vaping Alcohol intake: never Substance use: current Substance use type: marijuana Living arrangements: with family Gender identity (if verbalized by the patient): Female Exam Narrative: GENERAL: Well-appearing, well-nourished, and in no acute distress. HEAD: Normocephalic, atraumatic. ENT: Mucous membranes moist. Poor dentition. NECK: Supple. CHEST: Clear to auscultation. No respiratory distress. Tender palpation left anterior chest wall with light palpation. HEART: Regular rate and rhythm. Normal peripheral pulses. ABDOMEN: Soft, nontender, nondistended. EXTREMITIES: Normal range of motion. No edema. SKIN: Warm, dry, no rash. NEURO: Alert and oriented x3. PSYCH: Normal mood and affect. Course Course Emergency Course: Patient resting comfortably. Tachycardia resolved. EKG normal. Troponin testing negative as is D-dimer. Pain is acutely reproducible with light palpation to the chest wall. Patient felt appropriate for discharge home with pain control. Vital Signs Vital signs: Vital Signs Temperature 97.4 F L 03/26/23 16:08 Pulse Rate 107 H 03/26/23 16:08 Respiratory Rate 26 H 03/26/23 16:08 Blood Pressure 167/126 H 03/26/23 16:08 Pulse Oximetry 100 03/26/23 16:08 Oxygen Delivery Room Air 03/26/23 16:08 Temperature 97.4 F L 03/26/23 16:08 Pulse Rate 108 H 03/26/23 16:24 Respiratory Rate 18 03/26/23 16:24 Blood Pressure 147/87 H 03/26/23 16:24 Pulse Oximetry 100 03/26/23 16:24 Oxygen Delivery Room Air 03/26/23 16:14 Medical Decision Making Vital Signs Vital Signs: Vital Signs Temperature 97.4 F L 03/26/23 16:08 Pulse Rate 107 H 03/26/23 16:08 Respiratory Rate 26 H 03/26/23 16:08 Blood Pressure 167/126 H 03/26/23 16:08 Pulse Oximetry 100 03/26/23 16:08 Oxygen Delivery Room Air 03/26/23 16
[2023-03-26] MEDS: MORPHINE SULFATE (*CRX) 2 MG/ML INJ IV PUSH (17:54)
[2023-03-26 18:05] VITALS: BP 130/76; PULSE 85; RESP 20; O2SAT 100
== END 2023-03-26 18:10 | disposition home or self-care (01) ==
PROVIDERS: Emergency Provider Emergency Medicine
DX: R07.89 Other chest pain (principal); F17.290 Nicotine dependence, other tobacco product, uncomplicated; R94.31 Abnormal electrocardiogram [ECG] [EKG]
CPT/HCPCS: 36415; 71046; 80053; 84484; 85025; 85380; 85610; 85730; 93005; 96374; 96375; 99284; J1885; J2270

== ENCOUNTER 2023-04-09 04:59 | Emergency (ER) | payer BC, SELFPAY ==
--- NOTE | ~2023-04-09 | XR_ITS ---
Portable chest x-ray Comparison: 03/26/2023 Clinical History: Chest pain Findings: Calcified right midlung granuloma present. Lungs are otherwise clear. No pleural effusion or pneumothorax. Cardiomediastinal silhouette is stable. Bones and soft tissues are unremarkable. Impression: No acute abnormality. Reviewed, dictated and finalized at [facility]. Impression: No acute abnormality.
[2023-04-09 04:59] VITALS: BP 164/96; PULSE 107; RESP 16; TEMP 36.6; O2SAT 100
--- NOTE | 2023-04-09 05:04 | ECG_ITS ---
Measurements Intervals [place] Rate: 87 P: 71 CT: 139 QRS: 25 QRSD: 90 T: 45 QT: 360 QTc: 433 Interpretive Statements SINUS RHYTHM WITH SINUS ARRHYTHMIA BORDERLINE ST ABNORMALITY- ANTEROLATERAL/INF LEADS BORDERLINE ECG COMPARED TO ECG 03/26/2023 16:16:47 SINUS ARRHYTHMIA NOW PRESENT Electronically Signed On 04-09-2023 6:55:14 CDT by Venkat Zapata D.O.
--- NOTE | 2023-04-09 05:21 | ED.GENADULT ---
HPI - General Adult General Chief complaint: Anxiety Stated complaint: sob Time Seen by Provider: 04/09/23 05:06 History of Present Illness HPI narrative: Patient is a 42-year-old female who presents to Emergency Department with a chief complaint of anxiety. Patient reports has been under a lot of stress lately at work and is being harassed by individuals at work the patient states that she is been off of her anxiety medicines for approximately 1 year and reports that she is going to see her primary later this week to start back on her anxiety medicine patient reports that she is not having any suicidal or homicidal thoughts patient reports he felt as though the world is caving in on her and reports that she got diaphoretic when this happened Related Data Allergies Allergy/AdvReac Type Severity Reaction Status Date / Time carbamazepine Allergy Unknown Abdominal Verified 03/26/23 16:22 Pain oxcarbazepine Allergy Unknown Unknown Verified 03/26/23 16:22 topiramate Allergy Unknown Unknown Verified 03/26/23 16:22 Review of Systems Review of Systems: A 10 system review of systems was completed on the patient and is negative except for what is stated in the HPI. Nursing and ancillary documentation was reviewed. [facility] Past Medical History Medical History Bipolar disorder Surgical History Surgical History History of removal of ovarian cyst Social History Social History Smoking status: Current every day smoker Tobacco type: e-cigarettes/vaping Alcohol intake: never Substance use: current Substance use type: marijuana Living arrangements: with family Gender identity (if verbalized by the patient): Female Exam Narrative: GENERAL: Well-appearing, well-nourished, and in no acute distress. HEAD: Normocephalic, atraumatic. EYES: PERRLA and EOMI. ENT: Nares clear, no rhinorrhea or epistaxis. Mucous membranes moist. NECK: Supple. CHEST: Clear to auscultation. No respiratory distress. HEART: Regular rate and rhythm. No murmur heard. Normal peripheral pulses. ABDOMEN: Soft, nontender, nondistended, normal active bowel sounds. EXTREMITIES: Normal range of motion. No edema. SKIN: Warm, dry, no rash. NEURO: No focal deficits. Alert and oriented x3. PSYCH: Normal mood and affect. Course Vital Signs Vital signs: Vital Signs Temperature 36.6 C 04/09/23 04:59 Pulse Rate 107 H 04/09/23 04:59 Respiratory Rate 16 04/09/23 04:59 Blood Pressure 164/96 H 04/09/23 04:59 Pulse Oximetry 100 04/09/23 04:59 Oxygen Delivery Room Air 04/09/23 04:59 Temperature 36.6 C 04/09/23 04:59 Pulse Rate 94 04/09/23 05:41 Respiratory Rate 13 04/09/23 05:41 Blood Pressure 131/101 H 04/09/23 05:41 Pulse Oximetry 98 04/09/23 05:41 Oxygen Delivery Room Air 04/09/23 04:59 Medical Decision Making MDM Narrative Medical decision making narrative: Differential diagnosis because acute anxiety attack, ACS, dysrhythmia, pneumothorax EKG shows sinus rhythm rate of [address] elevation or ST depression Studies were obtained on the patient which showed a normal CBC normal electrolytes negative troponin patient did have a potassium of 2.9 was given 40 mg of p.o. potassium chest x-ray showed no focal infiltrate Vital Signs Vital Signs: Vital Signs Temperature 36.6 C 04/09/23 04:59 Pulse Rate 107 H 04/09/23 04:59 Respiratory Rate 16 04/09/23 04:59 Blood Pressure 164/96 H 04/09/23 04:59 Pulse Oximetry 100 04/09/23 04:59 Oxygen Delivery Room Air 04/09/23 04:59 Temperature 36.6 C 04/09/23 04:59 Pulse Rate 94 04/09/23 05:41 Respiratory Rate 13 04/09/23 05:41 Blood Pressure 131/101 H 04/09/23 05:41 Pulse Oximetry 98 04/09/23 05:41 Oxygen Delivery Room Air 04/09/23 04:
[2023-04-09] MEDS: ASPIRIN 81 MG CHEWABLE TABLET 324 MG PO (05:34)
[2023-04-09] MEDS: LORazepam INJ (*CRX) 2 MG/ML VIAL 1 MG IV PUSH (05:35)
[2023-04-09 05:41] VITALS: BP 131/101; PULSE 94; RESP 13; O2SAT 98
[2023-04-09 05:52] LABS: Appearance Urine Clear (Clear); Basophils Absolute Auto 0.1 K/mm3 (0.0-0.1); Basophils Percent Auto 0.7 % (0.2-1.2); Bilirubin Urine Negative (Negative); Blood Urine Negative (Negative); Color Urine Yellow (Yellow); Eosinophils Absolute Auto 0.1 K/mm3 (0-0.3); Eosinophils Percent Auto 0.9 % (0-4.4); Glucose Urine UA Negative (Negative); Hematocrit 40.5 % (37.0-47.0); Hemoglobin 13.7 g/dL (12.0-15.0); Immature Granulocyte Absolute 0.02 K/mm3 (0.00-0.031); Immature Granulocyte Percent A 0.2 % (0-0.5); Ketones Urine Negative (Negative); Leukocyte Esterase Ur Negative LEU/UL (Negative); Lymphocytes Absolute Auto 2.64 K/mm3 (0.9-3.2); Lymphocytes Percent Auto 32.5 % (18.3-44.2); Mean Corpuscular HGB Conc 33.8 g/dl (32-36); Mean Corpuscular Hemoglobin 28.4 pg (26-34); Mean Platelet Volume 10.4 fl (7.4-10.4); Monocytes Absolute Auto 0.7 K/mm3 (0.1-0.6); Monocytes Percent Auto 8.9 % (2.6-8.5); Neutrophils Absolute Auto 4.6 K/mm3 (1.3-6.7); Neutrophils Percent Auto 56.8 % (45.5-73.1); Nitrate Urine Negative (Negative); Platelet Count Result 406 k/mm3 (150-375); Protein Urine Negative (Negative); Red Blood Count 4.82 M/mm3 (4.2-5.4); Red Cell Distribution Width 14.3 % (11.5-14.5); Specific Grav Ur 1.014 (1.001-1.035); Urobilinogen Urine 0.2 mg/dL (<2.0); White Blood Count 8.1 K/mm3 (4.5-10.0); pH Urine 5.5 (5.0-9.0)
[2023-04-09 06:02] LABS: Alanine Aminotransferase 21 U/L (6-35); Albumin Level 4.4 g/dL (3.5-5.1); Alkaline Phosphatase 55 U/L (38-126); Anion Gap 10 mmol/L (8-16); Aspartate Amino Transferase 23 U/L (14-36); Bilirubin,Total 0.5 mg/dL (0.2-1.3); Blood Urea Nitrogen 15 mg/dL (7-17); Carbon Dioxide 29 mmol/L (22-30); Chloride 95 mmol/L (98-107); Estimated CRCL calculation 99 ml/min; Estimated Glomerular Filt Rate > 60; Glucose 122 mg/dL (65-110); Lipase 93 U/L (23-300); Potassium 2.9 mmol/L (3.4-5.0); Sodium 134 mmol/L (137-145)
[2023-04-09 06:04] LABS: INR 0.9; Prothrombin Time 13.1 Seconds (11.1-14.7)
[2023-04-09 06:05] LABS: Partial Thromboplastin Time 30.9 SECONDS (22.3-36.8)
[2023-04-09 06:13] LABS: Troponin I < 0.012 ng/mL (0.000-0.034)
[2023-04-09] MEDS: POTASSIUM CHLORIDE 20 MEQ PACKET (FOR LIQUID) 40 MEQ PO (06:28)
[2023-04-09 06:31] LABS: Add Urine Microscopic? NO
[2023-04-09 06:56] VITALS: BP 155/89; PULSE 100; RESP 16; TEMP 36.6; O2SAT 98
== END 2023-04-09 06:57 | disposition home or self-care (01) ==
PROVIDERS: Emergency Provider Emergency Medicine; PCP Internal Medicine Cardiovascular Disease
DX: F41.9 Anxiety disorder, unspecified (principal); E87.6 Hypokalemia; F17.290 Nicotine dependence, other tobacco product, uncomplicated
CPT/HCPCS: 36415; 71045; 80053; 81003; 81025; 83690; 84484; 85025; 85610; 85730; 93005; 96374; 99284; A9270; J2060

== ENCOUNTER 2023-05-31 09:54 | Emergency (ER) | payer BC, SELFPAY ==
[2023-05-31] VITALS (20 sets, daily range): BP systolic 117–126; BP diastolic 74–78; PULSE 68–90; RESP 10–29; TEMP 36.9; O2SAT 99–100
--- NOTE | ~2023-05-31 | XR_ITS ---
EXAMINATION: XR chest 2V DATE: 05/31/2023 11:08 INDICATION: Shortness of breath. Chest tightness. TECHNIQUE: PA and lateral views of the chest were obtained. COMPARISON: Chest radiograph dated 04/09/2023 FINDINGS: Calcified nodules in the right midlung zone consistent with old granulomatous disease. Lungs otherwis e clear with no other airspace opacities, pulmonary edema, pleural effusion or pneumothorax. The card iomediastinal silhouette is normal. Mild thoracic spondylosis. Cholecystectomy clips in right upper q uadrant. IMPRESSION: 1. No acute cardiopulmonary disease. Reviewed, dictated and finalized at location A.
--- NOTE | 2023-05-31 09:55 | ECG_ITS ---
Measurements Intervals [place] Rate: 89 P: 73 ME: 133 QRS: 35 QRSD: 94 T: 47 QT: 376 QTc: 459 Interpretive Statements SINUS RHYTHM WITH SINUS ARRHYTHMIA POSSIBLE LEFT ATRIAL ENLARGEMENT BASELINE ARTIFACT- I, II, III, AVR, AVL, AVF, V2, V4, V6 BORDERLINE ECG COMPARED TO ECG 04/09/2023 05:08:16 NO SIGNIFICANT CHANGES Electronically Signed On 05-31-2023 11:49:54 CDT by Venkat Zapata D.O.
[2023-05-31 11:04] LABS: Basophils Absolute Auto 0.1 K/mm3 (0.0-0.1); Basophils Percent Auto 0.6 % (0.2-1.2); Eosinophils Percent Auto 0.4 % (0-4.4); Hematocrit 38.7 % (37.0-47.0); Hemoglobin 12.4 g/dL (12.0-15.0); Immature Granulocyte Absolute 0.05 K/mm3 (0.00-0.031); Immature Granulocyte Percent A 0.5 % (0-0.5); Mean Corpuscular Hemoglobin 27.7 pg (26-34); Mean Corpuscular Volume 86.6 fl (80-100); Mean Platelet Volume 9.4 fl (7.4-10.4); Monocytes Absolute Auto 0.8 K/mm3 (0.1-0.6); Monocytes Percent Auto 7.4 % (2.6-8.5); Neutrophils Absolute Auto 7.3 K/mm3 (1.3-6.7); Neutrophils Percent Auto 69.1 % (45.5-73.1); Platelet Count Result 423 k/mm3 (150-375); Red Blood Count 4.47 M/mm3 (4.2-5.4); Red Cell Distribution Width 14.6 % (11.5-14.5); White Blood Count 10.5 K/mm3 (4.5-10.0)
[2023-05-31 11:15] LABS: INR 0.9; Partial Thromboplastin Time 26.6 SECONDS (22.3-36.8); Prothrombin Time 12.7 Seconds (11.1-14.7)
[2023-05-31 11:16] LABS: Alanine Aminotransferase 19 U/L (6-35); Albumin Level 4.6 g/dL (3.5-5.1); Alkaline Phosphatase 65 U/L (38-126); Anion Gap 7 mmol/L (8-16); Aspartate Amino Transferase 20 U/L (14-36); Bilirubin,Total 0.5 mg/dL (0.2-1.3); Blood Urea Nitrogen 10 mg/dL (7-17); Calcium 9.7 mg/dL (8.4-10.2); Carbon Dioxide 28 mmol/L (22-30); Chloride 101 mmol/L (98-107); Estimated Glomerular Filt Rate > 60; Glucose 108 mg/dL (65-110); Lipase 70 U/L (23-300); Potassium 3.1 mmol/L (3.4-5.0); Sodium 136 mmol/L (137-145)
[2023-05-31 11:27] LABS: Troponin I < 0.012 ng/mL (0.000-0.034)
[2023-05-31 11:40] LABS: Influenza A QL RT-PCR Negative (Negative); Influenza B QL RT-PCR Negative (Negative); SARS-CoV-2 RNA PCR Negative (Negative)
[2023-05-31 12:27] LABS: D Dimer 0.32 ug/mL (<0.48)
[2023-05-31 12:37] LABS: NT Pro B Type Natriuretic Pept 108 pg/mL (19.9-100)
--- NOTE | 2023-05-31 12:46 | ED.CHESTPAIN ---
HPI - Chest Pain General Chief Complaint: Chest Pain Stated Complaint: SOB/CP/N Time Seen by Provider: 05/31/23 12:03 Source: patient Mode of arrival: ambulatory Limitations: no limitations History of Present Illness HPI narrative: Nuris is a 42-year-old female patient presenting to the clinic today with complaints of chest pain, headache, shortness of breath, nausea and vomiting. She also reports that she was having some numbness and tingling in her left arm. States it feels as though something is sitting on her chest. Symptoms started yesterday. He rates her pain an 8/10 to her head and is 6/10 to her chest pain. She is a current smoker. She also smokes marijuana. Denies any alcohol use. No history of high blood pressure or high cholesterol. Related Data Allergies Allergy/AdvReac Type Severity Reaction Status Date / Time carbamazepine Allergy Unknown Abdominal Verified 03/26/23 16:22 Pain oxcarbazepine Allergy Unknown Unknown Verified 03/26/23 16:22 topiramate Allergy Unknown Unknown Verified 03/26/23 16:22 Review of Systems Review of Systems: Pertinent positives per HPI. Patient denies any fever, chills, rash, visual changes, dizziness, cough, runny nose, sore throat, palpitations, diarrhea, constipation, abdominal pain, or any urinary issues. PMFSH Past Medical History Medical History Bipolar disorder Surgical History Surgical History History of removal of ovarian cyst Social History Social History Smoking status: Current every day smoker Tobacco type: e-cigarettes/vaping Alcohol intake: never Substance use: current Substance use type: marijuana Living arrangements: with family Gender identity (if verbalized by the patient): Female Comments At the time of my signature, I reviewed and agree with the nursing past medical, surgical, social, and family history. There is no relevant family history pertinent to the patient complaint. Exam Narrative: General: Well-developed, well nourished, in no apparent distress Head: Normocephalic, atraumatic. Chest wall: No bruising or swelling noted to the anterior chest wall, Even rise and fall of the chest wall, tender to palpation over the left anterior chest wall Cardio: Regular rate and rhythm, s1 and s2 normal, no murmur appreciated. Resp: Clear to auscultation bilaterally, no rhonchi, rales, wheezing or rubs. Abdomen: Soft, pliable, nondistended, nontender to palpation, bowel sounds present all 4 quadrants, no CVAT tenderness, no organomegaly. Extremities: No deformity, no edema, no cyanosis, capillary refill less than 2 seconds, peripheral pulses palpable and strong. Integumentary: Umbarger, warm, and dry, intact without lesion, no rashes. Course Course Emergency Course: Portions of this record may have been created with voice recognition software. Vital Signs Vital signs: Vital Signs Temperature 36.9 C 05/31/23 10:20 Pulse Rate 82 05/31/23 10:20 Respiratory Rate 16 05/31/23 10:20 Blood Pressure 117/74 05/31/23 10:20 Pulse Oximetry 100 05/31/23 10:20 Oxygen Delivery Room Air 05/31/23 10:20 Temperature 36.9 C 05/31/23 10:20 Pulse Rate 78 05/31/23 14:32 Respiratory Rate 13 05/31/23 14:32 Blood Pressure 117/74 05/31/23 10:20 Pulse Oximetry 100 05/31/23 14:32 Oxygen Delivery Room Air 05/31/23 11:06 Vital signs reviewed MDM - Chest Pain MDM Narrative Medical decision making narrative: at the time of visit patient is resting on the exam table. Heart score is 0 putting her at a low risk for heart attack. EKG was sinus rhythm Lab Data 05/31/23 10:55 05/31/23 10:55 Labs: Lab Results 05/31/23 05/31/23 Range/Units 10:55 14:20 WBC 10.5 H (4.5-10.0) K/mm3 RBC 4
[2023-05-31] MEDS: KETOROLAC 30 MG/ML VIAL (*BKC) IM (13:03)
[2023-05-31 14:53] LABS: Troponin I < 0.012 ng/mL (0.000-0.034)
== END 2023-05-31 15:55 | disposition home or self-care (01) ==
PROVIDERS: Emergency Medicine; Emergency Provider Nurse Practitioner Family; PCP Internal Medicine Cardiovascular Disease
DX: M94.0 Chondrocostal junction syndrome [Tietze] (principal); E87.6 Hypokalemia; R07.89 Other chest pain; Z20.822 Contact with and (suspected) exposure to COVID-19; F17.290 Nicotine dependence, other tobacco product, uncomplicated; R94.31 Abnormal electrocardiogram [ECG] [EKG]
CPT/HCPCS: 36415; 71046; 80053; 83690; 83880; 84484; 85025; 85380; 85610; 85730; 87636; 93005; 96372; 99284; J1885

== ENCOUNTER 2023-10-10 08:04 | Emergency (ER) | payer BC, SELFPAY ==
[2023-10-10] VITALS (16 sets, daily range): BP systolic 122–140; BP diastolic 68–90; PULSE 67–130; RESP 12–26; TEMP 37.1; O2SAT 97–100
--- NOTE | 2023-10-10 08:08 | ED.GENADULT ---
HPI - General Adult General Chief complaint: Nausea/Vomiting/Diarrhea Stated complaint: n/v/d History of Present Illness HPI narrative: Patient is a 43-year-old female who presents to the emergency department this morning complaining of nausea, vomiting, and diarrhea which started approximately 3 days ago. Patient states that secondary to the symptoms she feels dehydrated and is no lightheaded, especially when she gets up from a seated position. Patient is also been having headaches which she also attributes to her dehydration. 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 Patient also denies any chest pain, shortness of breath, abdominal pain, dysuria, hematuria, constipation, melena, hematochezia, fevers or chills. Patient also denies any headaches, dizziness, lightheadedness, blurry visions, focal weakness, numbness and or tingling. There are no other modifying, alleviating, or precipitating factors at this time. Related Data Allergies Allergy/AdvReac Type Severity Reaction Status Date / Time carbamazepine Allergy Unknown Abdominal Verified 03/26/23 16:22 Pain oxcarbazepine Allergy Unknown Unknown Verified 03/26/23 16:22 topiramate Allergy Unknown Unknown Verified 03/26/23 16:22 Review of Systems Review of Systems: All systems are reviewed and are negative unless stated otherwise in the HPI. [facility] Past Medical History Medical History Bipolar disorder Surgical History Surgical History History of removal of ovarian cyst Social History Social History Smoking status: Current every day smoker Tobacco type: e-cigarettes/vaping Alcohol intake: never Substance use: current Substance use type: marijuana Living arrangements: with family Gender identity (if verbalized by the patient): Female Exam Narrative: General: Alert, awake, afebrile, in no acute distress. HEENT: PERRL, no rhinorrhea, no post nasal drip, oropharynx clear. Neck: Trachea midline, no JVD, no lymphadenopathy. Cardiovascular: Regular rate and rhythm, no murmurs, rubs or gallops, no peripheral edema. Respiratory: Clear to auscultation bilaterally, no tachypnea, no wheezing, no rhonchi, no rubs, no respiratory distress. Abdomen: Soft, nontender, nondistended, no rebound, no guarding, no peritoneal signs. Musculoskeletal: No joint swelling or deformity, normal muscle tone. Skin: No rashes or petechia, no signs of infection. Psychiatric: Alert and oriented, normal behavior and judgment for situation. Neurological: Alert and oriented to person, place, and time. Follows all commands. No focal deficits, speech is clear and fluent. Course Vital Signs Vital signs: Vital Signs Temperature 98.8 F 10/10/23 08:02 Pulse Rate 98 10/10/23 08:02 Respiratory Rate 18 10/10/23 08:02 Blood Pressure 140/79 10/10/23 08:02 Pulse Oximetry 100 10/10/23 08:02 Oxygen Delivery Room Air 10/10/23 08:02 Temperature 98.8 F 10/10/23 08:02 Pulse Rate 93 10/10/23 08:15 Respiratory Rate 12 10/10/23 08:15 Blood Pressure 133/84 10/10/23 08:15 Pulse Oximetry 99 10/10/23 08:15 Oxygen Delivery Room Air 10/10/23 08:02 Medical Decision Making MDM Narrative Medical decision making narrative: The patient was evaluated by myself in the emergency department. History is obtained from patient who is an independent historian and physical exam was performed. External medical records were reviewed at this time. IV was established and pertinent tests were ordered. Patient was administered 1 L IV fluid bolus with normal saline and 4 mg IV Zofran for nausea. EKG was obtained which revealed sinus rhythm rate of 66 beats per minute. No ST changes, T wave inversions or evidence of acute ischemia.
[2023-10-10] MEDS: SODIUM CHLORIDE 0.9% IV 1,000 ML 999 ML IV CONT ×2 (08:15→09:34)
[2023-10-10 08:19] LABS: Basophils Absolute Auto 0.1 K/mm3 (0.0-0.1); Basophils Percent Auto 0.6 % (0.2-1.2); Eosinophils Percent Auto 0.2 % (0-4.4); Hematocrit 41.7 % (37.0-47.0); Hemoglobin 12.9 g/dL (12.0-15.0); Immature Granulocyte Absolute 0.03 K/mm3 (0.00-0.031); Immature Granulocyte Percent A 0.3 % (0-0.5); Lymphocytes Absolute Auto 2.72 K/mm3 (0.9-3.2); Lymphocytes Percent Auto 30.1 % (18.3-44.2); Mean Corpuscular HGB Conc 30.9 g/dl (32-36); Mean Corpuscular Hemoglobin 25.9 pg (26-34); Mean Corpuscular Volume 83.6 fl (80-100); Mean Platelet Volume 9.4 fl (7.4-10.4); Monocytes Absolute Auto 0.6 K/mm3 (0.1-0.6); Monocytes Percent Auto 6.2 % (2.6-8.5); Neutrophils Absolute Auto 5.7 K/mm3 (1.3-6.7); Neutrophils Percent Auto 62.6 % (45.5-73.1); Platelet Count Result 454 k/mm3 (150-375); Red Blood Count 4.99 M/mm3 (4.2-5.4); Red Cell Distribution Width 14.5 % (11.5-14.5)
[2023-10-10 08:32] LABS: Alanine Aminotransferase 20 U/L (6-35); Albumin Level 4.6 g/dL (3.5-5.1); Alkaline Phosphatase 68 U/L (38-126); Anion Gap 9 mmol/L (8-16); Aspartate Amino Transferase 20 U/L (14-36); Bilirubin,Total 0.5 mg/dL (0.2-1.3); Blood Urea Nitrogen 13 mg/dL (7-17); Calcium 9.7 mg/dL (8.4-10.2); Carbon Dioxide 28 mmol/L (22-30); Chloride 100 mmol/L (98-107); Estimated CRCL calculation 100 ml/min; Estimated Glomerular Filt Rate > 60; Glucose 126 mg/dL (65-110); Lipase 100 U/L (23-300); Potassium 3.2 mmol/L (3.4-5.0); Sodium 137 mmol/L (137-145)
--- NOTE | 2023-10-10 08:41 | ECG_ITS ---
Measurements Intervals [place] Rate: 66 P: 57 SD: 134 QRS: 44 QRSD: 97 T: 37 QT: 404 QTc: 423 Interpretive Statements SINUS RHYTHM WITH SINUS ARRHYTHMIA NORMAL ECG COMPARED TO ECG 05/31/2023 10:01:10 NO SIGNIFICANT CHANGES Electronically Signed On 10-10-2023 9:15:08 BREAKDOWN PERSON by Venkat Zapata D.O.
[2023-10-10 08:55] LABS: Influenza A QL RT-PCR Negative (Negative); Influenza B QL RT-PCR Negative (Negative); RSV RNA, RT-PCR Negative (Negative); SARS-CoV-2 RNA PCR Negative (Negative)
[2023-10-10 09:01] LABS: Magnesium 1.9 mg/dL (1.6-2.3)
[2023-10-10 09:20] LABS: Appearance Urine Clear (Clear); Bacteria Urine None Seen /hpf; Bilirubin Urine Negative (Negative); Blood Urine 2+ (Negative); Color Urine Yellow (Yellow); Glucose Urine UA Negative (Negative); Ketones Urine Negative (Negative); Leukocyte Esterase Ur Negative LEU/UL (Negative); Nitrate Urine Negative (Negative); Non Pathogenic Casts 0-2; Protein Urine Negative (Negative); Specific Grav Ur 1.013 (1.001-1.035); Squamous Epithelial Cell Urine Occasional /hpf (Few); Urobilinogen Urine 0.2 mg/dL (<2.0); WBC Urine 0-5 /hpf; pH Urine 7.5 (5.0-9.0)
[2023-10-10 09:22] LABS: Add Urine Microscopic? YES
[2023-10-10] MEDS: POTASSIUM CHLORIDE 20 MEQ PACKET (FOR LIQUID) 40 MEQ PO ×2 (09:34)
== END 2023-10-10 10:25 | disposition home or self-care (01) ==
PROVIDERS: Emergency Provider Emergency Medicine; PCP Internal Medicine Cardiovascular Disease
DX: K52.9 Noninfective gastroenteritis and colitis, unspecified (principal); E87.6 Hypokalemia; Z20.822 Contact with and (suspected) exposure to COVID-19; F17.290 Nicotine dependence, other tobacco product, uncomplicated; F31.9 Bipolar disorder, unspecified
CPT/HCPCS: 36415; 80053; 81001; 81025; 83690; 83735; 85025; 87637; 93005; 96360; 99283; A9270; J7030

== ENCOUNTER 2023-11-07 11:37 | Emergency (ER) | payer BC, SELFPAY ==
--- NOTE | ~2023-11-07 | CT_ITS ---
EXAMINATION: CT abdomen pelvis w con DATE: 11/07/2023 14:47 INDICATION: Right lower quadrant abdominal pain TECHNIQUE: Computed tomography (CT) of the abdomen and pelvis was performed with 100 mL Omnipaque-350 intravenous contrast. Automated exposure control and iterative reconstruction technique were employe d. The dose-length product was 709.12 mGy-cm. COMPARISON: 08/02/2022 FINDINGS: Lung bases are clear. Heart size is normal. No pericardial or pleural effusion. Focal hepatic steatos is ligamentum teres. 9 mm subtle hypodense lesion in the lateral segment left hepatic lobe which is w ithout interval change since the prior study favoring a benign etiology such as hemangioma, focal nod ular hyperplasia or additional focal fat. There are few scattered small calcified hepatic and splenic nodules consistent with old granulomatous disease. Cholecystectomy clips the gallbladder fossa. Panc reas, bilateral adrenal glands and kidneys are normal. Bowels including the appendix are normal. Blad zoran, anteverted uterus and right adnexa are normal. Again seen are couple left ovarian cysts the larg er measuring 1.9 cm. No free intraperitoneal gas or fluid. No pathologically enlarged abdominal or pe lvic lymphadenopathy. Mild lumbar dextrocurvature. Mild scattered degenerative skeletal changes in th e spine and bilateral hips. IMPRESSION: 1. No acute intra-abdominal/pelvic process. Specifically the appendix is normal. Reviewed, dictated and finalized at location A. YARDIST IMPRESSION: 1. No acute intra-abdominal/pelvic process. Specifically the appendix is normal .
[2023-11-07 11:48] VITALS: BP 123/74; PULSE 103; RESP 18; TEMP 36.6; O2SAT 100
--- NOTE | 2023-11-07 11:50 | ECG_ITS ---
Measurements Intervals [place] Rate: 96 P: 78 [place]: 145 QRS: 52 QRSD: 77 T: 46 QT: 348 QTc: 440 Interpretive Statements SINUS RHYTHM NONSPECIFIC ST AR ABNORMAL ECG COMPARED TO ECG 10/10/2023 09:00:20 ST (T WAVE) DEVIATION NOW PRESENT Electronically Signed On 11-07-2023 13:19:06 LUMBER STACKER by Kalin Mast M.D.
[2023-11-07 12:34] LABS: Basophils Absolute Auto 0.1 K/mm3 (0.0-0.1); Basophils Percent Auto 0.5 % (0.2-1.2); Eosinophils Absolute Auto 0.1 K/mm3 (0-0.3); Eosinophils Percent Auto 0.6 % (0-4.4); Hematocrit 40.4 % (37.0-47.0); Hemoglobin 12.9 g/dL (12.0-15.0); Immature Granulocyte Absolute 0.04 K/mm3 (0.00-0.031); Immature Granulocyte Percent A 0.4 % (0-0.5); Lymphocytes Absolute Auto 2.79 K/mm3 (0.9-3.2); Lymphocytes Percent Auto 28.1 % (18.3-44.2); Mean Corpuscular HGB Conc 31.9 g/dl (32-36); Mean Corpuscular Hemoglobin 25.9 pg (26-34); Mean Corpuscular Volume 81.1 fl (80-100); Mean Platelet Volume 9.5 fl (7.4-10.4); Monocytes Percent Auto 9.9 % (2.6-8.5); Neutrophils Percent Auto 60.5 % (45.5-73.1); Platelet Count Result 514 k/mm3 (150-375); Red Blood Count 4.98 M/mm3 (4.2-5.4); Red Cell Distribution Width 15.4 % (11.5-14.5); White Blood Count 9.9 K/mm3 (4.5-10.0)
[2023-11-07 12:48] LABS: Alanine Aminotransferase 21 U/L (6-35); Albumin Level 4.9 g/dL (3.5-5.1); Alkaline Phosphatase 67 U/L (38-126); Anion Gap 11 mmol/L (8-16); Aspartate Amino Transferase 25 U/L (14-36); Bilirubin,Total 0.4 mg/dL (0.2-1.3); Blood Urea Nitrogen 12 mg/dL (7-17); Calcium 9.9 mg/dL (8.4-10.2); Carbon Dioxide 23 mmol/L (22-30); Chloride 101 mmol/L (98-107); Estimated CRCL calculation 113 ml/min; Estimated Glomerular Filt Rate > 60; Glucose 106 mg/dL (65-110); Lipase 157 U/L (23-300); Potassium 3.5 mmol/L (3.4-5.0); Sodium 135 mmol/L (137-145)
--- NOTE | 2023-11-07 14:18 | ED.ABDPAIN ---
HPI - Abdominal Pain General Chief Complaint: Abdominal Pain Stated Complaint: Right lower abd pain Time Seen by Provider: 11/07/23 14:16 History of Present Illness HPI narrative: Patient is a 43-year-old female who presents to the emergency department this afternoon complaining of nausea, vomiting, and diarrhea for the past week. Patient is also complaining of right lower quadrant abdominal pain. Patient has a history of colitis and her last colitis flare-up was approximately 1 year ago. She denies any sick contacts at home or exposure to known COVID or influenza. Patient denies any blood in her diarrhea or vomiting denying any melena, hematochezia and hematemesis. Patient is currently denying any additional symptoms including fevers, chills, chest pain or shortness of breath. There are no other modifying, alleviating, or precipitating factors at this time. The remainder the history of present illness and review of systems negative unless stated otherwise in the HPI. Related Data Allergies Allergy/AdvReac Type Severity Reaction Status Date / Time carbamazepine Allergy Unknown Abdominal Verified 11/07/23 14:51 Pain oxcarbazepine Allergy Unknown Unknown Verified 11/07/23 14:51 topiramate Allergy Unknown Unknown Verified 11/07/23 14:51 Review of Systems Review of Systems: All systems are reviewed and are negative unless stated otherwise in the HPI. PMFSH Past Medical History Medical History Bipolar disorder Surgical History Surgical History History of removal of ovarian cyst Social History Social History Smoking status: Current every day smoker Tobacco type: e-cigarettes/vaping Alcohol intake: never Substance use: current Substance use type: marijuana Living arrangements: with family Gender identity (if verbalized by the patient): Female Exam Narrative: General: Alert, awake, afebrile, in no acute distress. HEENT: PERRL, no rhinorrhea, no post nasal drip, oropharynx clear. Neck: Trachea midline, no JVD, no lymphadenopathy. Cardiovascular: Regular rate and rhythm, no murmurs, rubs or gallops, no peripheral edema. Respiratory: Clear to auscultation bilaterally, no tachypnea, no wheezing, no rhonchi, no rubs, no respiratory distress. Abdomen: Soft, no tenderness to palpation specifically in the right lower quadrant, nondistended, no rebound, no guarding, no peritoneal signs. Musculoskeletal: No joint swelling or deformity, normal muscle tone. Skin: No rashes or petechia, no signs of infection. Psychiatric: Alert and oriented, normal behavior and judgment for situation. Neurological: Alert and oriented to person, place, and time. Follows all commands. No focal deficits, speech is clear and fluent. Course Vital Signs Vital signs: Vital Signs Temperature 98 F 11/07/23 11:48 Pulse Rate 103 H 11/07/23 11:48 Respiratory Rate 18 11/07/23 11:48 Blood Pressure 123/74 11/07/23 11:48 Pulse Oximetry 100 11/07/23 11:48 Oxygen Delivery Room Air 11/07/23 11:48 Temperature 98 F 11/07/23 11:48 Pulse Rate 90 11/07/23 15:16 Respiratory Rate 11 L 11/07/23 15:16 Blood Pressure 140/84 11/07/23 15:16 Pulse Oximetry 100 11/07/23 15:16 Oxygen Delivery Room Air 11/07/23 11:48 MDM - Abdominal Pain MDM Narrative Medical decision making narrative: The patient was evaluated by myself in the emergency department. History is obtained from patient who is an independent historian and physical exam was performed. External medical records were reviewed at this time. IV was established and pertinent tests were ordered. Patient was administered patient was administered a 1 L IV fluid bolus with normal saline and 4 mg of IV Zofran for nausea and 50 mg of IV Toradol for pain. EKG was obtained which revealed si
[2023-11-07 14:34] LABS: Appearance Urine Clear (Clear); Bilirubin Urine Negative (Negative); Blood Urine Negative (Negative); Color Urine Yellow (Yellow); Glucose Urine UA Negative (Negative); Ketones Urine 1+ mg/dL (Negative); Leukocyte Esterase Ur Negative LEU/UL (Negative); Nitrate Urine Negative (Negative); Protein Urine Negative (Negative); Specific Grav Ur 1.012 (1.001-1.035); Urobilinogen Urine 0.2 mg/dL (<2.0); pH Urine 5.5 (5.0-9.0)
[2023-11-07 14:37] LABS: Add Urine Microscopic? NO
[2023-11-07] MEDS: SODIUM CHLORIDE 0.9% IV 1,000 ML 999 ML IV CONT (14:50)
[2023-11-07 15:10] VITALS: PULSE 87; RESP 14; O2SAT 100
[2023-11-07 15:15] VITALS: PULSE 94; RESP 12; O2SAT 100
[2023-11-07 15:16] VITALS: BP 140/84; PULSE 90; RESP 11; O2SAT 100
[2023-11-07] MEDS: ONDANSETRON INJ 4 MG/2 ML VIAL IV PUSH (15:33)
[2023-11-07] MEDS: KETOROLAC 15 MG/ML VIAL (*BKC) IV PUSH (15:33)
== END 2023-11-07 16:18 | disposition home or self-care (01) ==
PROVIDERS: Emergency Medicine; Emergency Provider Emergency Medicine; PCP Internal Medicine Cardiovascular Disease
DX: K52.9 Noninfective gastroenteritis and colitis, unspecified (principal); E86.0 Dehydration; F17.290 Nicotine dependence, other tobacco product, uncomplicated
CPT/HCPCS: 36415; 74177; 80053; 81003; 81025; 83690; 85025; 93005; 96361; 96374; 96375; 99284; J1885; J2405; J7030; Q9967

== ENCOUNTER 2024-05-02 04:38 | Emergency (ER) | payer BC, SELFPAY ==
--- NOTE | ~2024-05-02 | XR_ITS ---
Clinical Indication: Left chest pain PA and lateral views of the chest: Comparison: 05/31/2023 Findings: Stable calcified right midlung granuloma. The lungs are otherwise clear, without evidence o f focal consolidation or pleural effusion. Cardiomediastinal silhouette is within normal limits. Bon es and soft tissues are unremarkable. Impression: No acute abnormality. Reviewed, dictated and finalized at location . Impression: No acute abnormality.
[2024-05-02 04:38] VITALS: BP 138/67; PULSE 75; RESP 18; TEMP 36.4; O2SAT 100
--- NOTE | 2024-05-02 04:44 | ECG_ITS ---
Test Date: 2024-05-02 04:46:26 Measurements Intervals [place] Rate: 75 P: 63 DE: 141 QRS: 19 QRSD: 93 T: 38 QT: 401 QTc: 450 Interpretive Statements SINUS RHYTHM NORMAL ELECTROCARDIOGRAM No previous ECG available for comparison Electronically Signed On 05-02-2024 14:56:47 CDT by Fahad Hinton M.D.
[2024-05-02 04:45] VITALS: PULSE 75; O2SAT 100
--- NOTE | 2024-05-02 04:46 | ED.CHESTPAIN ---
HPI - Chest Pain General Chief Complaint: Chest Pain Stated Complaint: CHEST PAIN Time Seen by Provider: 05/02/24 04:45 Source: patient and EMS Mode of arrival: EMS Limitations: no limitations History of Present Illness HPI narrative: This is a 43-year-old female, with history of anxiety, brought in by EMS from home with complaints of chest pain. The patient states approximately 7 hours prior to arrival, she noted some sharp left-sided chest and shoulder pain. This was initially described as minimal. Approximately 1 hour prior to arrival, she woke from sleep with sharp left-sided chest pain rated 7/10. This is accompanied by some nausea and palpitations. She has no other complaints at this time. Related Data Allergies Allergy/AdvReac Type Severity Reaction Status Date / Time carbamazepine Allergy Unknown Abdominal Verified 11/07/23 14:51 Pain oxcarbazepine Allergy Unknown Unknown Verified 11/07/23 14:51 topiramate Allergy Unknown Unknown Verified 11/07/23 14:51 Review of Systems Review of Systems: Last menstrual period 1 week ago All systems reviewed & are unremarkable except as noted in HPI and below PMFSH Past Medical History Medical History Bipolar disorder Surgical History Surgical History History of removal of ovarian cyst Social History Social History Smoking status: Current every day smoker Tobacco type: e-cigarettes/vaping Alcohol intake: never Substance use: current Substance use type: marijuana Living arrangements: with family Gender identity (if verbalized by the patient): Female Exam Narrative: GENERAL: Well-developed, well-nourished, and in no acute distress. HEAD: Normocephalic, atraumatic. EYES: PERRLA and EOMI. ENT: Nares clear, no rhinorrhea or epistaxis. Mucous membranes moist. Oropharynx without tonsillar hypertrophy exudate or other lesions. Poor dentition CHEST: Clear to auscultation. No respiratory distress. No wheezes rales or rhonchi. Tender to palpation over the left anterior chest wall HEART: Regular rate and rhythm. No murmur heard. Normal peripheral pulses. ABDOMEN: Soft, nontender, nondistended, normal active bowel sounds. EXTREMITIES: Normal range of motion. No edema. SKIN: Warm, dry, no rash. NEURO: Alert and oriented x3. No focal deficit. Moving all 4 limbs spontaneously PSYCH: Normal mood and affect. Course Course Emergency Course: 05:50 - EKG not concerning for ischemia. Initial troponin negative. Heart score 2. With reproducible chest pain on palpation, I do not suspect ACS. CBC demonstrates microcytic anemia. Chemistries demonstrate mild hypokalemia with potassium of 3.3. This was repleted. Chest x-ray by my review not concerning for acute cardiopulmonary process. There is a nodule in the right middle lobe, consistent with prior granulomatous nodules that appears unchanged. On re-evaluation, the patient states she feels improved. Will discharge with recommendation for primary care follow-up. I discussed the findings and recommendations with the patient. Discussed return and emergency precautions including signs/symptoms of ACS and respiratory distress. The patient voiced understanding and agreement with the plan. All questions answered to her satisfaction. Vital Signs Vital signs: Vital Signs Temperature 97.6 F 05/02/24 04:38 Pulse Rate 75 05/02/24 04:38 Respiratory Rate 18 05/02/24 04:38 Blood Pressure 138/67 05/02/24 04:38 Pulse Oximetry 100 05/02/24 04:38 Oxygen Delivery Room Air 05/02/24 04:38 Temperature 97.6 F 05/02/24 04:38 Pulse Rate 75 05/02/24 04:45 Respiratory Rate 18 05/02/24 04:38 Blood Pressure 138/67 05/02/24 04:38 Pulse Oximetry 100 05/02/24 04:45 Oxygen Delivery Room Air 05/02/24 04:45 MDM - Chest Pain MDM
[2024-05-02] MEDS: ONDANSETRON INJ 4 MG/2 ML VIAL IV PUSH (04:52)
[2024-05-02] MEDS: MORPHINE SULFATE (*CRX) 2 MG/ML INJ IV PUSH (04:53)
[2024-05-02 05:09] LABS: Basophils Percent Auto 0.6 % (0.2-1.2); Eosinophils Absolute Auto 0.1 K/mm3 (0-0.3); Eosinophils Percent Auto 1.8 % (0-4.4); Hematocrit 32.6 % (37.0-47.0); Hemoglobin 10.3 g/dL (12.0-15.0); Immature Granulocyte Absolute 0.03 K/mm3 (0.00-0.031); Immature Granulocyte Percent A 0.4 % (0-0.5); Lymphocytes Absolute Auto 2.16 K/mm3 (0.9-3.2); Lymphocytes Percent Auto 29.8 % (18.3-44.2); Mean Corpuscular HGB Conc 31.6 g/dl (32-36); Mean Corpuscular Hemoglobin 25.1 pg (26-34); Mean Corpuscular Volume 79.3 fl (80-100); Mean Platelet Volume 9.7 fl (7.4-10.4); Monocytes Absolute Auto 0.6 K/mm3 (0.1-0.6); Monocytes Percent Auto 8.8 % (2.6-8.5); Neutrophils Absolute Auto 4.3 K/mm3 (1.3-6.7); Neutrophils Percent Auto 58.6 % (45.5-73.1); Platelet Count Result 390 k/mm3 (150-375); Red Blood Count 4.11 M/mm3 (4.2-5.4); Red Cell Distribution Width 15.9 % (11.5-14.5); White Blood Count 7.3 K/mm3 (4.5-10.0)
[2024-05-02 05:25] LABS: Alanine Aminotransferase 16 U/L (6-35); Albumin Level 3.9 g/dL (3.5-5.1); Alkaline Phosphatase 48 U/L (38-126); Anion Gap 7 mmol/L (4-12); Aspartate Amino Transferase 16 U/L (14-36); Bilirubin,Total 0.2 mg/dL (0.2-1.3); Blood Urea Nitrogen 10 mg/dL (7-17); Carbon Dioxide 26 mmol/L (22-30); Chloride 103 mmol/L (98-107); Estimated CRCL calculation 115 ml/min; Estimated Glomerular Filt Rate > 60; Glucose 104 mg/dL (65-110); Potassium 3.3 mmol/L (3.4-5.0); Sodium 136 mmol/L (137-145)
[2024-05-02 05:36] LABS: Troponin I < 0.012 ng/mL (0.000-0.034)
[2024-05-02] MEDS: POTASSIUM CHLORIDE 20 MEQ ER TABLET 40 MEQ PO (05:36)
== END 2024-05-02 06:03 | disposition home or self-care (01) ==
PROVIDERS: Emergency Provider Preventive Medicine Aerospace Medicine; PCP Internal Medicine Cardiovascular Disease
DX: R07.89 Other chest pain (principal); D50.9 Iron deficiency anemia, unspecified; E87.6 Hypokalemia; F17.290 Nicotine dependence, other tobacco product, uncomplicated
CPT/HCPCS: 36415; 71046; 80053; 84484; 85025; 93005; 96374; 96375; 99284; A9270; J2270; J2405

== ENCOUNTER 2024-06-10 06:22 | Emergency (ER) | payer BC, SELFPAY ==
[2024-06-10 06:26] VITALS: BP 125/65; PULSE 73; RESP 18; TEMP 36.7; O2SAT 100
[2024-06-10 08:12] VITALS: BP 116/84; PULSE 75; RESP 18; O2SAT 100
--- NOTE | 2024-06-10 08:17 | ED.GENADULT ---
HPI - General Adult General Chief complaint: Nausea/Vomiting/Diarrhea Stated complaint: headache, n/v/d Time Seen by Provider: 06/10/24 08:07 History of Present Illness HPI narrative: 43-year-old female presenting ED for evaluation of headache with nausea without vomiting. Patient reports she was diagnosed with gastritis last week but feels her symptoms are worsening. Related Data Allergies Allergy/AdvReac Type Severity Reaction Status Date / Time carbamazepine Allergy Unknown Abdominal Verified 11/07/23 14:51 Pain oxcarbazepine Allergy Unknown Unknown Verified 11/07/23 14:51 topiramate Allergy Unknown Unknown Verified 11/07/23 14:51 [facility] Past Medical History Medical History Bipolar disorder Surgical History Surgical History History of removal of ovarian cyst Social History Social History Smoking status: Current every day smoker Tobacco type: e-cigarettes/vaping Alcohol intake: never Substance use: current Substance use type: marijuana Living arrangements: with family Gender identity (if verbalized by the patient): Female Exam Narrative: APPEARANCE: Uncomfortable appearing HEAD: normocephalic, atraumatic. EYES: PERRLA/EOMI, conjunctivae clear. NOSE: Normal no drainage EARS:TMS clear with good light reflex. THROAT: Pharynx clear, no exudate. NECK: Supple. No adenopathy, no masses. RESPIRATORY: Airway patent, respirations nonlabored. Clear to auscultation bilaterally, no rales, rhonchi, wheezing. CARDIOVASCULAR: Regular rate and rhythm without murmurs rubs or gallops. ABDOMINAL: Soft, nontender, nondistended, normal bowel sounds MUSCULOSKELETAL: Moves all extremities. Strength/ROM intact, No edema, No calf tenderness. NEURO: Alert. Cranial nerves II through XII intact. Good gait. Good coordination SKIN: Warm, dry. Normal Color Course Vital Signs Vital signs: Vital Signs Temperature 98.0 F 06/10/24 06:26 Pulse Rate 73 06/10/24 06:26 Respiratory Rate 18 06/10/24 06:26 Blood Pressure 125/65 06/10/24 06:26 Pulse Oximetry 100 06/10/24 06:26 Oxygen Delivery Room Air 06/10/24 06:26 Temperature 98.0 F 06/10/24 06:26 Pulse Rate 75 06/10/24 08:12 Respiratory Rate 18 06/10/24 08:12 Blood Pressure 116/84 06/10/24 08:12 Pulse Oximetry 100 06/10/24 08:12 Oxygen Delivery Room Air 06/10/24 06:26 Medical Decision Making MDM Narrative Medical decision making narrative: 43-year-old female presents emergency department for evaluation for headache and gastritis. Prior to completing her workup patient left AMA. Vital Signs Vital Signs: Vital Signs Temperature 98.0 F 06/10/24 06:26 Pulse Rate 73 06/10/24 06:26 Respiratory Rate 18 06/10/24 06:26 Blood Pressure 125/65 06/10/24 06:26 Pulse Oximetry 100 06/10/24 06:26 Oxygen Delivery Room Air 06/10/24 06:26 Temperature 98.0 F 06/10/24 06:26 Pulse Rate 75 06/10/24 08:12 Respiratory Rate 18 06/10/24 08:12 Blood Pressure 116/84 06/10/24 08:12 Pulse Oximetry 100 06/10/24 08:12 Oxygen Delivery Room Air 06/10/24 06:26 Lab Data 06/10/24 08:27 06/10/24 08:27 Labs: Lab Results 06/10/24 Range/Units 08:27 WBC 10.3 H (4.5-10.0) K/mm3 RBC 4.59 (4.2-5.4) M/mm3 Hgb 11.3 L (12.0-15.0) g/dL Hct 35.9 L (37.0-47.0) % MCV 78.2 L (80-100) fl MCH 24.6 L (26-34) pg MCHC 31.5 L (32-36) g/dl RDW 15.7 H (11.5-14.5) % Plt Count 420 H (150-375) k/mm3 MPV 9.4 (7.4-10.4) fl Immature Gran % (Auto) 0.3 (0-0.5) % Neut % (Auto) 68.8 (45.5-73.1) % Lymph % (Auto) 22.6 (18.3-44.2) % Nance % (Auto) 7.2 (2.6-8.5) % Eos % (Auto) 0.4 (0-4.4) % Baso % (Auto) 0.7 (0.2-1.2) % Lymph # (Auto) 2.34 (0.9-3.2) K/mm3 Nance # (Auto) 0.7 H (0
[2024-06-10 08:33] LABS: Basophils Absolute Auto 0.1 K/mm3 (0.0-0.1); Basophils Percent Auto 0.7 % (0.2-1.2); Eosinophils Percent Auto 0.4 % (0-4.4); Hematocrit 35.9 % (37.0-47.0); Hemoglobin 11.3 g/dL (12.0-15.0); Immature Granulocyte Absolute 0.03 K/mm3 (0.00-0.031); Immature Granulocyte Percent A 0.3 % (0-0.5); Lymphocytes Absolute Auto 2.34 K/mm3 (0.9-3.2); Lymphocytes Percent Auto 22.6 % (18.3-44.2); Mean Corpuscular HGB Conc 31.5 g/dl (32-36); Mean Corpuscular Hemoglobin 24.6 pg (26-34); Mean Corpuscular Volume 78.2 fl (80-100); Mean Platelet Volume 9.4 fl (7.4-10.4); Monocytes Absolute Auto 0.7 K/mm3 (0.1-0.6); Monocytes Percent Auto 7.2 % (2.6-8.5); Neutrophils Absolute Auto 7.1 K/mm3 (1.3-6.7); Neutrophils Percent Auto 68.8 % (45.5-73.1); Platelet Count Result 420 k/mm3 (150-375); Red Blood Count 4.59 M/mm3 (4.2-5.4); Red Cell Distribution Width 15.7 % (11.5-14.5); White Blood Count 10.3 K/mm3 (4.5-10.0)
[2024-06-10 08:47] LABS: Alanine Aminotransferase 23 U/L (6-35); Albumin Level 4.8 g/dL (3.5-5.1); Anion Gap 10 mmol/L (4-12); Aspartate Amino Transferase 22 U/L (14-36); Bilirubin,Total 0.3 mg/dL (0.2-1.3); Blood Urea Nitrogen 14 mg/dL (7-17); Calcium 9.7 mg/dL (8.4-10.2); Carbon Dioxide 28 mmol/L (22-30); Chloride 98 mmol/L (98-107); Estimated CRCL calculation 114 ml/min; Estimated Glomerular Filt Rate > 60; Glucose 109 mg/dL (65-110); Potassium 3.5 mmol/L (3.4-5.0); Sodium 136 mmol/L (137-145)
[2024-06-10 08:48] LABS: Alkaline Phosphatase 68 U/L (38-126); Lactic Acid Reflex 1.4 mmol/L (0.7-2.0); Lipase 107 U/L (23-300)
--- NOTE | 2024-06-10 09:49 | PC.NURSE ---
pt hit call button and tells sr community manager she would like her IV taken out so she can leave to go to a different hospital. EDP Joseph made aware and states to have pt sign AMA forms. when going in to patients room pt states I have just been sitting here in pain and nobody has told me anything! pt made aware that labs were drawn and we are waiting for physician for more orders. pt made aware we are extremely busy in the ED and that the provider will update her as soon as he can. pt states I dont care just take this shit out I'm going somewhere else! attempted to explain to pt benefits of staying and risks of leaving. pt refusing to receive any type of education and refuses to sign AMA form. pt states get the hell out of my way I'm leaving! I hope I pass out in front of you! IV removed w/ catheter intact. pt dressed and ambulated out of ED with steady gait.
[2024-06-10 09:50] VITALS: RESP 17
== END 2024-06-10 10:32 | disposition left against medical advice (07) ==
PROVIDERS: Emergency Provider Emergency Medicine; PCP Internal Medicine Cardiovascular Disease
DX: R51.9 Headache, unspecified (principal); R11.2 Nausea with vomiting, unspecified; F17.290 Nicotine dependence, other tobacco product, uncomplicated
CPT/HCPCS: 36415; 80053; 83605; 83690; 85025; 99283

== ENCOUNTER 2024-06-29 08:43 | Emergency (ER) | payer OTHER, BC, SELFPAY ==
--- NOTE | 2024-06-29 08:49 | ED.UPPEXIN ---
HPI - Extremity Injury (Upper) General Chief Complaint: Extremity Injury, Upper Stated Complaint: right shoulder injury Time Seen by Provider: 06/29/24 08:49 Source: patient, RN notes reviewed and old records reviewed Mode of arrival: ambulatory Limitations: no limitations History of Present Illness HPI narrative: Patient presents with complaints of right shoulder pain. Patient is right-hand dominant. She reports that she was at work this morning, reached over her head to grab a box, felt a muscle pull in the right shoulder. Denies any a rate injury or trauma. She applied ice for short time after the injury, but has not taken any pain relievers. She is requesting a work note for today and tomorrow. She voices no other concerns or complaints. She is not in any distress Related Data Home Medications Medication Instructions Recorded Confirmed atorvastatin 40 mg tablet 40 mg PO DAILY 06/29/24 06/29/24 famotidine 20 mg tablet 20 mg PO DAILY 06/29/24 06/29/24 hydrochlorothiazide 50 mg tablet 50 mg PO DAILY 06/29/24 06/29/24 hydroxyzine HCl 25 mg tablet 25 mg PO TID 06/29/24 06/29/24 lamotrigine 100 mg tablet 100 mg PO DAILY 06/29/24 06/29/24 loratadine 10 mg tablet 10 mg PO DAILY 06/29/24 06/29/24 losartan 100 mg tablet 100 mg PO DAILY 06/29/24 06/29/24 trazodone 50 mg tablet 50 mg PO DAILY 06/29/24 06/29/24 Allergies Allergy/AdvReac Type Severity Reaction Status Date / Time carbamazepine Allergy Intermediate Rash Verified 06/29/24 09:08 oxcarbazepine Allergy Intermediate Rash Verified 06/29/24 09:08 topiramate AdvReac Intermediate Headache Verified 06/29/24 09:08 Review of Systems Review of Systems: All systems reviewed & are unremarkable except as noted in HPI and below Constitutional: Constitutional: Reports no additional constitutional complaints ENT: Reports system reviewed and no additional complaints, except as documented Cardiovascular: Cardiovascular: Reports no additional cardiovascular complaints Respiratory: Respiratory: Reports no additional respiratory complaints Gastrointestinal: Gastrointestinal: Reports no additional gastrointestinal complaints Musculoskeletal: Musculoskeletal: Reports no additional musculoskeletal complaints, Reports as per HPI, Denies neck pain and Denies numbness PMFSH Past Medical History Medical History Bipolar disorder Surgical History Surgical History History of removal of ovarian cyst Social History Social History Smoking status: Current every day smoker Tobacco type: e-cigarettes/vaping Alcohol intake: never Substance use: current Substance use type: marijuana Living arrangements: with family Gender identity (if verbalized by the patient): Female Exam Const: General: cooperative, no acute distress, alert and awake Orientation/consciousness: oriented to person, oriented to place and oriented to time HENMT: Head: normal to inspection Resp: Effort & Inspection: normal respiratory effort and able to speak in complete sentences Auscultation: clear to auscultation bilaterally, no crackles, no rales, no rhonchi and no wheezes Cardio: Palpation: normal PMI Rate: regular rate Rhythm: regular rhythm Heart sounds: S1 normal heart sound present and S2 normal heart sound present Back/Spine/Pelvis: Cervical Spine: cervical ROM normal and No Cervical spine tenderness Neuro: General: oriented to person, oriented to place and oriented to time Cranial nerves: Yes CN's II-XII intact bilaterally Extrem: Right upper extremity: normal capillary refill and shoulder/upper arm tenderness of the scapula and abnormal ROM pain with active ROM in ABduction and external rotation- Psych: Appearance: grossly normal Thought process: Normal thought process present Insight: Good insight present (Psych) Judgemen
[2024-06-29 08:55] VITALS: BP 136/76; PULSE 97; RESP 16; TEMP 36.4; O2SAT 98
[2024-06-29 08:59] VITALS: BP 136/76; PULSE 97; RESP 16; TEMP 36.4; O2SAT 98
== END 2024-06-29 09:18 | disposition home or self-care (01) ==
PROVIDERS: Emergency Provider Nurse Practitioner Family; PCP Internal Medicine Cardiovascular Disease
DX: M25.511 Pain in right shoulder (principal); F31.9 Bipolar disorder, unspecified; F17.290 Nicotine dependence, other tobacco product, uncomplicated; F12.90 Cannabis use, unspecified, uncomplicated
CPT/HCPCS: 99213; G0463

== ENCOUNTER 2024-08-27 13:00 | Emergency (ER) | payer BC, SELFPAY ==
--- NOTE | ~2024-08-27 | XR_ITS ---
EXAMINATION: XR chest 2V DATE: 08/27/2024 14:02 INDICATION: Chest pain. TECHNIQUE: Frontal and lateral views of the chest were obtained. COMPARISON: Chest 2 views 07/27/2024, CT abdomen and pelvis 11/07/2023 FINDINGS: A calcified right lung nodule and calcified right hilar lymph nodes are consistent with old granulomatous disease. No pleural effusion or pneumothorax. The heart size is normal. Surgical clips in the right upper quadrant are likely from cholecystectomy. IMPRESSION: 1. No acute cardiopulmonary disease. Reviewed, dictated and finalized at location A. [employer]
[2024-08-27 13:10] VITALS: BP 140/80; PULSE 83; RESP 20; TEMP 36.6; O2SAT 100
--- NOTE | 2024-08-27 13:13 | ECG_ITS ---
Test Date: 2024-08-27 13:18:30 Measurements Intervals [place] Rate: 80 P: 64 NH: 136 QRS: 18 QRSD: 90 T: 28 QT: 380 QTc: 440 Interpretive Statements SINUS RHYTHM WITH OCCASIONAL SUPRAVENTRICULAR PREMATURE COMPLEXES ABNORMAL ECG Compared to ECG 07/28/2024 06:38:28 No significant changes Electronically Signed On 08-27-2024 15:04:18 [employer] by Kalin Mast M.D.
--- NOTE | 2024-08-27 13:35 | ED.GENADULT ---
HPI - General Adult General Chief complaint: Chest Pain Stated complaint: chest pain Time Seen by Provider: 08/27/24 13:15 History of Present Illness HPI narrative: 44-year-old female presenting to the emergency department for evaluation for left-sided chest pain that started with anxiety this morning. Patient did take her hydroxyzine states that not help with the chest pain. Related Data Home Medications Medication Instructions Recorded Confirmed atorvastatin 40 mg tablet 40 mg PO HS 06/29/24 07/27/24 famotidine 20 mg tablet 20 mg PO DAILY 06/29/24 07/27/24 hydrochlorothiazide 50 mg tablet 50 mg PO DAILY 06/29/24 07/27/24 hydroxyzine HCl 25 mg tablet 25 mg PO TID 06/29/24 07/27/24 lamotrigine 100 mg tablet 100 mg PO DAILY 06/29/24 07/27/24 loratadine 10 mg tablet 10 mg PO DAILY 06/29/24 07/27/24 losartan 100 mg tablet 100 mg PO DAILY 06/29/24 07/27/24 trazodone 50 mg tablet 50 mg PO DAILY 06/29/24 07/27/24 Allergies Allergy/AdvReac Type Severity Reaction Status Date / Time carbamazepine Allergy Intermediate Rash Verified 08/27/24 14:34 oxcarbazepine Allergy Intermediate Rash Verified 08/27/24 14:34 aloe Allergy Anaphylaxis Verified 08/27/24 14:34 topiramate AdvReac Intermediate Headache Verified 08/27/24 14:34 Review of Systems Review of Systems: All systems reviewed & are unremarkable except as noted in HPI and below PMFSH Past Medical History Medical History Anxiety Bipolar disorder Dyslipidemia Hypertension Smoking Surgical History Surgical History (Updated 07/27/24 @ 20:38 by Marge Gunter APRN) History of cholecystectomy History of knee surgery left meniscus repair History of removal of ovarian cyst Social History Social History Smoking status: Current every day smoker Tobacco type: cigarettes and e-cigarettes/vaping Alcohol intake: never Substance use: current Substance use type: marijuana Do You Feel Safe in your Home?: Yes Lack of Transportation: No Lack of Food: Never True Current Housing: I Have Housing Concerned About Future Housing: No Difficulty Paying Gas/Electric Bills: No Difficulty Paying for Meds: No Currently Unemployed: No Education: Decline to Answer Difficulty w/ Childcare or Family Care: No Living arrangements: with family Gender identity (if verbalized by the patient): Female Spiritual care concerns: No Exam Narrative: APPEARANCE: Well appearing, no pain, no distress, well-nourished. HEAD: normocephalic, atraumatic. EYES: PERRLA/EOMI, conjunctivae clear. NOSE: Normal no drainage EARS:TMS clear with good light reflex. THROAT: Pharynx clear, no exudate. NECK: Supple. No adenopathy, no masses. RESPIRATORY: Airway patent, respirations nonlabored. Clear to auscultation bilaterally, no rales, rhonchi, wheezing. CARDIOVASCULAR: Regular rate and rhythm without murmurs rubs or gallops. ABDOMINAL: Soft, nontender, nondistended, normal bowel sounds MUSCULOSKELETAL: Moves all extremities. Strength/ROM intact, No edema, No calf tenderness. NEURO: Alert. Cranial nerves II through XII intact. Grossly intact SKIN: Warm, dry. Normal Color Course Vital Signs Vital signs: Vital Signs Temperature 97.9 F 08/27/24 13:10 Pulse Rate 83 08/27/24 13:10 Respiratory Rate 20 08/27/24 13:10 Blood Pressure 140/80 08/27/24 13:10 Pulse Oximetry 100 08/27/24 13:10 Oxygen Delivery Room Air 08/27/24 13:10 Temperature 97.9 F 08/27/24 13:10 Pulse Rate 73 08/27/24 14:36 Respiratory Rate 13 08/27/24 14:36 Blood Pressure 143/79 H 08/27/24 14:36 Pulse Oximetry 100 08/27/24 14:36 Oxygen Delivery Room Air 08/27/24 13:10 Medical Decision Making [facility] Narrative Medical decision making narrative: 44-year-old female presents emergency department for evaluation for left-sided chest wall pain. Patient is afebrile with no leukocytosis and hemoglobin of 10.8. Patient had negative serial troponins. Patient is PERC negative. EKG showed normal sinus rhythm with nonspecific ST changes. Chest x-ray shows no acute cardiopulmonary abnormality. Patient was updated on the results of the workup patient was comfortable plan for discharge and close follow-up. Patient was courage of close follow-up with primary care physician for additional outpatient cardiac testing. Vital Signs Vital Signs: Vital Signs Temperature 97.9 F 08/27/24 13:10 Pulse Rate 83 08/27/24 13:10 Respiratory Rate 20 08/27/24 13:10 Blood Pressure 140/80 08/27/24 13:10 Pulse Oximetry 100 08/27/24 13:10 Oxygen Delivery Room Air 08/27/24 13:10 Temperature 97.9 F 08/27/24 13:10 Pulse Rate 73 08/27/24 14:36 Respiratory Rate 13 08/27/24 14:36 Blood Pressure 143/79 H 08/27/24 14:36 Pulse Oximetry 100 08/27/24 14:36 Oxygen Delivery Room Air 08/27/24 13:10 Lab Data 08/27/24 13:34 08/27/24 13:34 Labs: Lab Results 08/27/24 08/27/24 Range/Units 13:34 16:15 WBC 6.3 (4.5-10.0) K/mm3 RBC 4.36 (4.2-5.4) M/mm3 Hgb 10.8 L (12.0-15.0) g/dL Hct 35.1 L (37.0-47.0) % MCV 80.5 (80-100) fl MCH 24.8 L (26-34) pg MCHC 30.8 L (32-36) g/dl RDW 19.8 H (11.5-14.5) % Plt Count 316 (150-375) k/mm3 MPV 9.3 (7.4-10.4) fl Immature Gran % (Auto) 0.2 (0-0.5) % Neut % (Auto) 59.5 (45.5-73.1) % Lymph % (Auto) 28.7 (18.3-44.2) % Charles % (Auto) 10.2 H (2.6-8.5) % Eos % (Auto) 0.6 (0-4.4) % Baso % (Auto) 0.8 (0.2-1.2) % Lymph # (Auto) 1.81 (0.9-3.2) K/mm3 [place] # (Auto) 0.6 (0.1-0.6) K/mm3 Eos # (Auto) 0.0 (0-0.3) K/mm3 Baso # (Auto) 0.1 (0.0-0.1) K/mm3 Abs Immat Gran (auto) 0.01 (0.00-0.031) K/mm3 Absolute Neuts (auto) 3.8 (1.3-6.7) K/mm3 Absolute Nucleated RBC 0.000 (0.0-0.012) K/mm3 Nucleated RBC % 0.0 (0.0-0.2) % PT 13.1 (11.1-14.7) Seconds INR 0.9 APTT 31.5 (22.3-36.8) Seconds Sodium 140 (137-145) mmol/L Potassium 3.7 (3.4-5.0) mmol/L Chloride 109 H (98-107) mmol/L Carbon Dioxide 28 (22-30) mmol/L Anion Gap 3 L (4-12) mmol/L BUN 14 (7-17) mg/dL Creatinine 0.80 (0.7-1.0) mg/dL Estim Creat Clear Calc 102 ml/min Estimated GFR > 60 (59 - ) Glucose 105 (65-110) mg/dL Calcium 9.2 (8.4-10.2) mg/dL Total Bilirubin 0.3 (0.2-1.3) mg/dL AST 17 (14-36) U/L ALT 14 (6-35) U/L Alkaline Phosphatase 54 (38-126) U/L Troponin I < 0.012 < 0.012 (0.000-0.034) ng/mL Total Protein 7.0 (6.3-8.2) g/dL Albumin 4.2 (3.5-5.1) g/dL Lipase 68 (23-300) U/L Discharge Plan Discharge Clinical Impression: Chest pain Patient Disposition: Home, Self-Care Condition: Stable Instructions: Antibiotic Form, Chest Wall Pain (ED) Additional Instructions: Have close follow-up with your primary care physician for additional outpatient cardiac testing. If you have any worsening symptoms then please call or return to the emergency department. Prescriptions: No Action atorvastatin 40 mg tablet 40 mg PO HS trazodone 50 mg tablet 50 mg PO DAILY hydrochlorothiazide 50 mg tablet 50 mg PO DAILY famotidine 20 mg tablet 20 mg PO DAILY losartan 100 mg tablet 100 mg PO DAILY lamotrigine 100 mg tablet 100 mg PO DAILY loratadine 10 mg tablet 10 mg PO DAILY hydroxyzine HCl 25 mg tablet 25 mg PO TID aspirin 81 mg Tablet,Delayed Release (Dr/Ec) 81 mg PO QAM Qty: 30 0RF Follow-up/Referrals: Krissy,NICKOLAS Spangler [Primary Care Provider] -
[2024-08-27 13:41] LABS: Basophils Absolute Auto 0.1 K/mm3 (0.0-0.1); Basophils Percent Auto 0.8 % (0.2-1.2); Eosinophils Percent Auto 0.6 % (0-4.4); Hematocrit 35.1 % (37.0-47.0); Hemoglobin 10.8 g/dL (12.0-15.0); Immature Granulocyte Absolute 0.01 K/mm3 (0.00-0.031); Immature Granulocyte Percent A 0.2 % (0-0.5); Lymphocytes Absolute Auto 1.81 K/mm3 (0.9-3.2); Lymphocytes Percent Auto 28.7 % (18.3-44.2); Mean Corpuscular HGB Conc 30.8 g/dl (32-36); Mean Corpuscular Hemoglobin 24.8 pg (26-34); Mean Corpuscular Volume 80.5 fl (80-100); Mean Platelet Volume 9.3 fl (7.4-10.4); Monocytes Absolute Auto 0.6 K/mm3 (0.1-0.6); Monocytes Percent Auto 10.2 % (2.6-8.5); Neutrophils Absolute Auto 3.8 K/mm3 (1.3-6.7); Neutrophils Percent Auto 59.5 % (45.5-73.1); Platelet Count Result 316 k/mm3 (150-375); Red Blood Count 4.36 M/mm3 (4.2-5.4); Red Cell Distribution Width 19.8 % (11.5-14.5); White Blood Count 6.3 K/mm3 (4.5-10.0)
[2024-08-27 13:54] LABS: Alanine Aminotransferase 14 U/L (6-35); Albumin Level 4.2 g/dL (3.5-5.1); Alkaline Phosphatase 54 U/L (38-126); Anion Gap 3 mmol/L (4-12); Aspartate Amino Transferase 17 U/L (14-36); Bilirubin,Total 0.3 mg/dL (0.2-1.3); Blood Urea Nitrogen 14 mg/dL (7-17); Calcium 9.2 mg/dL (8.4-10.2); Carbon Dioxide 28 mmol/L (22-30); Chloride 109 mmol/L (98-107); Estimated CRCL calculation 102 ml/min; Estimated Glomerular Filt Rate > 60; Glucose 105 mg/dL (65-110); Lipase 68 U/L (23-300); Potassium 3.7 mmol/L (3.4-5.0); Sodium 140 mmol/L (137-145)
[2024-08-27 13:59] LABS: INR 0.9; Partial Thromboplastin Time 31.5 Seconds (22.3-36.8); Prothrombin Time 13.1 Seconds (11.1-14.7)
[2024-08-27 14:05] LABS: Troponin I < 0.012 ng/mL (0.000-0.034)
[2024-08-27] MEDS: LORazepam INJ (*CRX) 2 MG/ML VIAL 1 MG IV PUSH (14:34)
[2024-08-27 14:36] VITALS: BP 143/79; PULSE 73; RESP 13; O2SAT 100
--- NOTE | 2024-08-27 16:11 | ECG_ITS ---
Test Date: 2024-08-27 16:24:49 Measurements Intervals [place] Rate: 81 P: 61 [place]: 129 QRS: 12 QRSD: 93 T: 27 QT: 407 QTc: 475 Interpretive Statements SINUS RHYTHM NONSPECIFIC ST ABNORMALITY ABNORMAL ECG Compared to ECG 08/27/2024 13:18:30 No significant changes Electronically Signed On 08-27-2024 16:45:55 [employer] by Kalin Mast M.D.
[2024-08-27 16:44] LABS: Troponin I < 0.012 ng/mL (0.000-0.034)
== END 2024-08-27 18:30 | disposition home or self-care (01) ==
PROVIDERS: Emergency Provider Emergency Medicine; PCP Physician Assistant
DX: R07.9 Chest pain, unspecified (principal); I10 Essential (primary) hypertension; E78.5 Hyperlipidemia, unspecified; F41.9 Anxiety disorder, unspecified; F31.9 Bipolar disorder, unspecified; F17.210 Nicotine dependence, cigarettes, uncomplicated; F17.290 Nicotine dependence, other tobacco product, uncomplicated; Z79.899 Other long term (current) drug therapy; Z90.49 Acquired absence of other specified parts of digestive tract; I49.1 Atrial premature depolarization
CPT/HCPCS: 36415; 71046; 80053; 83690; 84484; 85025; 85610; 85730; 93005; 96374; 99284; J2060

== ENCOUNTER 2024-10-28 06:58 | Emergency (ER) | payer BC, SELFPAY ==
[2024-10-28 07:03] VITALS: BP 167/92; PULSE 114; RESP 24; TEMP 36.9; O2SAT 100
--- OUTSIDE RECORDS SUMMARY | 2024-10-28 08:26 | XMS_ITS | Clinical Summary ---
Author Organization [facility] Address [address] [place] [address]. [place], [place] [id number] [place] [id number] Care Team Providers Care Ironmolder Name Role Phone None, Provider MD Primary Care Provider Unavaila ble Allergies Active Allergy Reactions Criticality Noted Date Comments Carbamazepine Unknown 05/10/2017 Oxcarbazepine Unknown 05/10/2017 Topiramate Unknown 05/10/2017 Medications ondansetron 4 MG disintegrating tablet Take 1 tablet (4 mg total) by mouth every 8 (eight) hours as needed. 15 tablet 2 Active traMADol (ULTRAM) 50 MG tabletIndications:A cute Pain < 3 Day Supply Take 1 tablet (50 mg total) by mouth every 6 (six) hours as needed for Pain. Indications : Acute Pain < 3 Day Supply 12 tablet 2 Active Social History Tobacco Use Types Packs/Day Years Used Date Smoking Tobacco: Every Day Cigarettes 0.5 10 Smokeless Tobacco: Never Alcohol Use Standard Drinks/Week Comments Not Currently 0 (1 standard drink = 0.6 oz pur e alcohol) Comments No Sex and Gender Information Value Date Recorded Sex Assigned at Not on file Legal Sex Female 8:11 PM CDT Gender Identity Not on file Sexual Orientation Not on file Last Filed Vital Signs Vital Sign Reading Time Taken Comments Blood Pressure 184/94 02/26/2022 1:11 PM CDT Pulse 72 02/26/2022 1:11 PM CDT Temperature 36.7 ??C (98 ??F) 02/26/2022 10:02 AM CDT Respiratory Rate 19 02/26/2022 1:11 PM CDT Oxygen Saturation 100% 02/26/2022 1:11 PM CDT Inhaled Oxygen Concentration - - Weight 95.3 kg (210 lb) 02/26/2022 10:02 AM CDT Height 180.3 cm (5' 11 ) 02/26/2022 10:02 AM CDT Body Mass Index 29.29 02/26/2022 10:02 AM CDT Plan of Treatment Health Maintenance Due Date Last Done Comments Cervical Cancer Screening Pa p Smear (Age 30 to 64) Every 3 Years 1978 Colorectal Cancer Screening Colonoscopy (10 Years) 1978 Annual Physical 1981 Hepatitis C 1996 Hepatitis B Vaccines (1 of 3 - 19+ 3-dose series) 1997 Cervical Cancer Screening Pa p with HPV Testing (Age 30 to 64) Every 5 Years 2008 Cervical Cancer Screening wi th HPV 2008 Pneumococcal Vaccine: Pediatrics (0 to 5 Years) and At-Risk Patients (6 to 64 Years) (2 of 2 - PCV) 10/04/2014 10/04/2013 DTaP, Tdap and Td Vaccines ( 2 - Td or Tdap) 12/03/2022 12/03/2012 COVID-19 Vaccine ( - 2023-2 5 season) 2024 Influenza Adult (#1) 2024 07/01/2015, 08/05/2014, 10/04/2013 Mammogram Screening 07/11/2026 07/11/2024, 06/06/2024 Meningococcal B Vaccine Aged Out No l onger eligible based on patient's age to complete this topic Meningococcal Vaccine Aged Out No lou leonardo eligible based on patient's age to complete this topic RSV Immunizations Under 20 Months Aged Out No longer eligible b ased on patient's age to complete this topic Procedures Procedure Name Priority Date/Time Associated Diagnosis Comments MG DIAG W MIGUEL ANGEL LT DIGI Routine 07/11/2024 9:49 AM CDT Abnormal mammogram from Last 3 Months or Most Recently Relevant to Health Maintenance Results * MG DIAG W MIGUEL ANGEL LT DIGI (07/11/2024 9:49 AM CDT) Anatomical Region Laterality Modality Breast Left Mammography 07/11/2024 10:3 5 AM CDT Impressions 07/11/2024 10:39 AM CDT IMPRESSION: ??Effacing fibroglandular tissue. Clustered calcifications with a typically benign in morphology for which six-month diagnostic follow-up is recommended. ?? RECOMMENDATION: ??Short interval follow-up in 6 months.Left Findings, impression, and recommendation were discussed with the patient and patient's immediately following exam completion. OVERALL IMAGING ASSESSMENT: ACR BI-RADS 3 - PROBABLY BENIGN FINDING(S) - SHORT INTERVAL FOLLOW-UP SUGGESTED. ?? Ordered By: NICOLE REY Interpreted By: Tristian Galeana, 07/11/2024 10:35 AM Narrative 07/11/2024 10:39 AM CDT [facility] [address] [place] [address] EXAMINATION: MG REHANG W MIGUEL ANGEL LT DIGI ? INDICATIONS: Abnormal mammogram TECHNIQUE: Digital full field true lateral, spot compression CC and MLO, and magnification ML diagnostic views of the left breast to include 3-D Tomosynthesis technique. This study was read with the assistance of a computer-aided detection system. HISTORY: Abnormal baseline screening mammography. No current breast complaint. No personal or family history of breast cancer. COMPARISON: Baseline mammography of 06/06/2024. TISSUE DENSITY: There are scattered areas of fibroglandular density. FINDINGS: Effacing fibroglandular tissue within region of described faint masses without underlying mass, architectural distortion, or persistent asymmetry. Loosely clustered calcifications at the lower middle depth breast demonstrates a predominantly typically benign round morphology and few amorphous calcifications with layering on true lateral view. No coarse heterogeneous, pleomorphic, or linear branching calcifications. No associated mass or architectural distortion. No axillary adenopathy. us Nicole Rey PA-C MAMMO Final Resu lt from Last 3 Months or Most Recently Relevant to Health Maintenance Insurance [employer] [id number] Care Teams Ironmolder Relationship Specialty Start Date End Date None, Provider, PCP - General 02/23/22
--- NOTE | 2024-10-28 08:28 | ED_ITS ---
HPI - General Adult General Chief complaint: Headache Stated complaint: multiple complaints Time Seen by Provider: 10/28/24 07:02 Source: patient Mode of arrival: EMS Limitations: no limitations History of Present Illness HPI narrative: 44-year-old with a history of bipolar disorder here with the complaints of having headache, blurred vision, body tingling more so in the lower extremities. Patient states that she vomited couple times this morning. Patient was seen yesterday in the ER had lab work and chest x-ray which were all unremarkable. Patient states that she got discharged and she still continues to feel the same. Denies any trauma. Onset (ago): day(s) (1) Location: head Radiation: non-radiation Severity: mild Quality: aching Pain Consistency: constant Relieving factors: none Exacerbating factors: none Associated symptoms: denies other symptoms Related Data Home Medications ?Medication ?Instructions ?Recorded ?Confirmed ?Last Taken ?Type atorvastatin 40 mg tablet 40 mg PO HS 06/29/24 07/27/24 Unknown History famotidine 20 mg tablet 20 mg PO DAILY 06/29/24 07/27/24 Unknown History hydrochlorothiazide 50 mg tablet 50 mg PO DAILY 06/29/24 07/27/24 Unknown History hydroxyzine HCl 25 mg tablet 25 mg PO TID 06/29/24 07/27/24 Unknown History lamotrigine 100 mg tablet 100 mg PO DAILY 06/29/24 07/27/24 Unknown History loratadine 10 mg tablet 10 mg PO DAILY 06/29/24 07/27/24 Unknown History losartan 100 mg tablet 100 mg PO DAILY 06/29/24 07/27/24 Unknown History trazodone 50 mg tablet 50 mg PO DAILY 06/29/24 07/27/24 Unknown History Allergies Allergy/AdvReac Type Severity Reaction Status Date / Time carbamazepine Allergy Intermediate Rash Verified 08/27/24 14:34 oxcarbazepine Allergy Intermediate Rash Verified 08/27/24 14:34 aloe Allergy Anaphylaxis Verified 08/27/24 14:34 topiramate AdvReac Intermediate Headache Verified 08/27/24 14:34 Review of Systems Review of Systems: All systems reviewed & are unremarkable except as noted in HPI and below Constitutional: Constitutional: Reports no additional constitutional complaints Eyes: Eyes: Reports no additional eye complaints ENT: Reports system reviewed and no additional complaints, except as documented Cardiovascular: Cardiovascular: Reports no additional cardiovascular complaints Respiratory: Respiratory: Reports no additional respiratory complaints Gastrointestinal: Gastrointestinal: Reports no additional gastrointestinal complaints Musculoskeletal: Musculoskeletal: Reports no additional musculoskeletal complaints PMFSH Past Medical History Medical History Anxiety Dyslipidemia Hypertension Smoking Bipolar disorder Surgical History Surgical History History of cholecystectomy History of knee surgery left meniscus repair History of removal of ovarian cyst Social History Social History Smoking status: Current every day smoker Tobacco type: cigarettes and e-cigarettes/vaping Alcohol intake: never Substance use: current Substance use type: marijuana Do You Feel Safe in your Home?: Yes Lack of Transportation: No Lack of Food: Never True Current Housing: I Have Housing Concerned About Future Housing: No Difficulty Paying Gas/Electric Bills: No Difficulty Paying for Meds: No Currently Unemployed: No Education: Decline to Answer Difficulty w/ Childcare or Family Care: No Living arrangements: with family Gender identity (if verbalized by the patient): Female Spiritual care concerns: No Exam Narrative: GENERAL: Well-appearing, well-nourished, and in no acute distress. HEAD: Normocephalic, atraumatic. EYES: PERRLA and EOMI. ENT: Nares clear, no rhinorrhea or epistaxis. Mucous membranes moist. NECK: Supple. CHEST: Clear to auscultation. No respiratory distress. HEART: Regular rate and rhythm. No murmur heard. Normal peripheral pulses. ABDOMEN: Soft, nontender, nondistended, normal active bowel sounds. EXTREMITIES: Normal range of motion. No edema. SKIN: Warm, dry, no rash. NEURO: No focal deficits. Alert and oriented x3. PSYCH: Normal mood and affect. Course Course Emergency Course: Informed her that she is having anxiety symptoms recommended her to continue her medication. Will give her Toradol and the Zofran for headache and nausea. Advised to follow up with the primary doctor or psychiatrist with Vital Signs Vital signs: Vital Signs Temperature 36.9 C 10/28/24 07:03 Pulse Rate 114 H 10/28/24 07:03 Respiratory Rate 24 H 10/28/24 07:03 Blood Pressure 167/92 H 10/28/24 07:03 Pulse Oximetry 100 10/28/24 07:03 Temperature 36.9 C 10/28/24 07:03 Pulse Rate 114 H 10/28/24 07:03 Respiratory Rate 24 H 10/28/24 07:03 Blood Pressure 167/92 H 10/28/24 07:03 Pulse Oximetry 100 10/28/24 07:03 Medical Decision Making Vital Signs Vital Signs: Vital Signs Temperature 36.9 C 10/28/24 07:03 Pulse Rate 114 H 10/28/24 07:03 Respiratory Rate 24 H 10/28/24 07:03 Blood Pressure 167/92 H 10/28/24 07:03 Pulse Oximetry 100 10/28/24 07:03 Temperature 36.9 C 10/28/24 07:03 Pulse Rate 114 H 10/28/24 07:03 Respiratory Rate 24 H 10/28/24 07:03 Blood Pressure 167/92 H 10/28/24 07:03 Pulse Oximetry 100 10/28/24 07:03 Discharge Plan Discharge Clinical Impression: Headache Qualifiers: Headache type: unspecified Headache chronicity pattern: episodic headache Intractability: intractable Qualified Code(s): R51.9 - Headache, unspecified Patient Disposition: Home, Self-Care Condition: Stable Instructions: Acute Headache (ED) Additional Instructions: Continue home medication take Zofran as needed for nausea. Follow-up with your primary doctor or a psychiatrist Patient Language: Romansh Prescriptions: New ondansetron 4 mg tablet,disintegrating 4 mg PO Q6-8H PRN (Reason: nausea and vomiting) Qty: 14 0RF No Action atorvastatin 40 mg tablet 40 mg PO HS trazodone 50 mg tablet 50 mg PO DAILY hydrochlorothiazide 50 mg tablet 50 mg PO DAILY famotidine 20 mg tablet 20 mg PO DAILY losartan 100 mg tablet 100 mg PO DAILY lamotrigine 100 mg tablet 100 mg PO DAILY loratadine 10 mg tablet 10 mg PO DAILY hydroxyzine HCl 25 mg tablet 25 mg PO TID aspirin 81 mg Tablet,Delayed Release (Dr/Ec) 81 mg PO QAM Qty: 30 0RF naproxen sodium [Anaprox DS] 550 mg tablet 550 mg PO Q12H PRN (Reason: pain) Qty: 14 0RF Follow-up/Referrals: Krissy,NICKOLAS Spangler [Primary Care Provider] - Time of Disposition: 08:32
[2024-10-28] MEDS: ONDANSETRON INJ 4 MG/2 ML VIAL IV PUSH (08:46)
[2024-10-28] MEDS: KETOROLAC 30 MG/ML VIAL (*BKC) IV PUSH (08:46)
== END 2024-10-28 08:46 | disposition home or self-care (01) ==
PROVIDERS: Emergency Provider Family Medicine; PCP Physician Assistant
DX: R51.9 Headache, unspecified (principal); F17.210 Nicotine dependence, cigarettes, uncomplicated; F41.9 Anxiety disorder, unspecified; E78.5 Hyperlipidemia, unspecified; I10 Essential (primary) hypertension; F32.9 Major depressive disorder, single episode, unspecified
CPT/HCPCS: 96374; 96375; 99284; J1885; J2405

== ENCOUNTER 2025-01-04 07:12 | Emergency (ER) | payer BC, SELFPAY ==
[2025-01-04 07:13] VITALS: BP 157/84; PULSE 68; RESP 16; TEMP 36.6; O2SAT 100
--- OUTSIDE RECORDS SUMMARY | 2025-01-04 07:36 | XMS_ITS | Clinical Summary ---
Author Organization [facility] Address [address] [place] [address] Care Team Providers Care Stripper Apprentice Name Role Phone None, Provider MD Primary [...] 72 02/26/2022 1:11 PM CDT Temperature 36.7 C (98 F) 02/26/2022 10:02 AM CDT Respiratory Rate 19 [...] 5 Years) and At-Risk Patients (6 to 49 Years) (2 of 2 - PCV) 10/04/2014 10/04/2013 DTaP, Tdap and Td Vaccines ( 2 - Td or Tdap) 12/03/2022 12/03/2012 COVID-19 Vaccine (1 - 2023-2 5 season) 2024 Mammogram Screening 07/11/2026 07/11/2024, 06/06/2024 Meningococcal B [...] CDT Impressions 07/11/2024 10:39 AM CDT IMPRESSION: Effacing fibroglandular tissue. Clustered calcifications with a typically benign in morphology for which six-month diagnostic follow-up is recommended. RECOMMENDATION: Short interval follow-up in 6 months.Left Findings, impression, and recommendation were discussed with the patient and patient's immediately following exam completion. OVERALL IMAGING ASSESSMENT: ACR BI-RADS 3 - PROBABLY BENIGN FINDING(S) - SHORT INTERVAL FOLLOW-UP SUGGESTED. Ordered By: NICOLE REY Interpreted By: Tristian Galeana, 07/11/2024 10:35 AM Narrative 07/11/2024 10:39 AM CDT [facility] [address] [place] [address] EXAMINATION: MG VALENTINA Crook MIGUEL ANGEL LT DIGI INDICATIONS: Abnormal mammogram TECHNIQUE: Digital full field [...] Most Recently Relevant to Health Maintenance Insurance [facility] Care Teams Stripper Apprentice Relationship Specialty Start Date End Date None, Provider, PCP - General 02/23/22
[2025-01-04] MEDS: diazePAM INJ (*CRX) 10 MG/2 ML SYRINGE 5 MG IV PUSH (07:51)
[2025-01-04] MEDS: diphenhydrAMINE HCl INJ 50 MG/ML VIAL 25 MG IV PUSH (07:52)
[2025-01-04 08:07] VITALS: BP 142/80; PULSE 86; RESP 16; TEMP 36.6; O2SAT 98
[2025-01-04 09:00] VITALS: BP 136/80; PULSE 78; RESP 16; TEMP 36.6; O2SAT 99
--- NOTE | 2025-01-04 09:11 | ED.GENADULT ---
HPI - General Adult General Chief complaint: Skin/Abscess/Foreign Body Stated complaint: pain to legs, rash to arms History of Present Illness HPI narrative: This is a 44-year-old female history of anxiety presenting for 2 complaints. Patient is tearful and crying during the interview. First complaint is tingling in her hands and feet. Patient says for last 3 days she has been having intermittent tingling in her hands and feet. She has also had tingling around her mouth. She feels she feels like something wrong. She says that she has history of anxiety attacks. She is currently taking hydroxyzine. She is in between doctors right now and is not taking any maintenance anxiety medication. Second complaint is a rash over her elbow. Patient itchy developed she has treated Benadryl anti-itch cream. She says that it is improving Related Data Home Medications ?Medication ?Instructions ?Recorded ?Confirmed ?Last Taken ?Type atorvastatin 40 mg tablet 40 mg PO HS 06/29/24 07/27/24 Unknown History famotidine 20 mg tablet 20 mg PO DAILY 06/29/24 07/27/24 Unknown History hydrochlorothiazide 50 mg tablet 50 mg PO DAILY 06/29/24 07/27/24 Unknown History hydroxyzine HCl 25 mg tablet 25 mg PO TID 06/29/24 07/27/24 Unknown History lamotrigine 100 mg tablet 100 mg PO DAILY 06/29/24 07/27/24 Unknown History loratadine 10 mg tablet 10 mg PO DAILY 06/29/24 07/27/24 Unknown History losartan 100 mg tablet 100 mg PO DAILY 06/29/24 07/27/24 Unknown History trazodone 50 mg tablet 50 mg PO DAILY 06/29/24 07/27/24 Unknown History Allergies Allergy/AdvReac Type Severity Reaction Status Date / Time carbamazepine Allergy Intermediate Rash Verified 08/27/24 14:34 oxcarbazepine Allergy Intermediate Rash Verified 08/27/24 14:34 aloe Allergy Anaphylaxis Verified 08/27/24 14:34 topiramate AdvReac Intermediate Headache Verified 08/27/24 14:34 [facility] Past Medical History Medical History Anxiety Dyslipidemia Hypertension Smoking Bipolar disorder Surgical History Surgical History History of cholecystectomy History of knee surgery left meniscus repair History of removal of ovarian cyst Social History Social History Smoking status: Current every day smoker Tobacco type: cigarettes and e-cigarettes/vaping Alcohol intake: never Substance use: current Substance use type: marijuana Do You Feel Safe in your Home?: Yes Lack of Transportation: No Lack of Food: Never True Current Housing: I Have Housing Concerned About Future Housing: No Difficulty Paying Gas/Electric Bills: No Difficulty Paying for Meds: No Currently Unemployed: No Education: Decline to Answer Difficulty w/ Childcare or Family Care: No Living arrangements: with family Gender identity (if verbalized by the patient): Female Spiritual care concerns: No Exam Narrative: APPEARANCE: Tearful and crying Head: atraumatic. EYES: EOMI, NOSE: Atraumatic NECK: Trachea midline RESPIRATORY: No increased rate of breathing CTAB CARDIOVASCULAR: RRR, ABDOMINAL: Non-distended soft nontender MUSCULOSKELETAl: No obvious deformities NEURO: Alert. Cranial nerves 2-12 grossly intact. Sensation light touch, motor function cerebellar function intact for 4 extremities. Gait exam was normal. SKIN:: Mild urticarial rash over her right elbow PSYCHIATRIC: Normal affect Course Vital Signs Vital signs: Vital Signs Temperature 97.8 F 01/04/25 07:13 Pulse Rate 68 01/04/25 07:13 Respiratory Rate 16 01/04/25 07:13 Blood Pressure 157/84 H 01/04/25 07:13 Pulse Oximetry 100 01/04/25 07:13 Oxygen Delivery Room Air 01/04/25 07:13 Temperature 97.8 F 01/04/25 08:07 Pulse Rate 86 01/04/25 08:07 Respiratory Rate 16 01/04/25 08:07 Blood Pressure 142/80 H 01/04/25 08:07 Pulse Oximetry 98 01/04/25 08:07 Oxygen Delivery Room Air 01/04/25 07:13 Medical Decision Making MDM Narrative Medical decision making narrative: -Course: 44-year-old female anxiety presenting with increased anxiety over last 3 days. Patient treated with Valium with improvement. Patient also has aortic care rash her right elbow. She has been treating with anti-itch cream is improving. She was given a dose of Benadryl here the ED. Patient discharged follow-up with primary care physician. -DDX includes but is not limited to: Dermatitis, allergic reaction urticarial rash anxiety Vital Signs Vital Signs: Vital Signs Temperature 97.8 F 01/04/25 07:13 Pulse Rate 68 01/04/25 07:13 Respiratory Rate 16 01/04/25 07:13 Blood Pressure 157/84 H 01/04/25 07:13 Pulse Oximetry 100 01/04/25 07:13 Oxygen Delivery Room Air 01/04/25 07:13 Temperature 97.8 F 01/04/25 08:07 Pulse Rate 86 01/04/25 08:07 Respiratory Rate 16 01/04/25 08:07 Blood Pressure 142/80 H 01/04/25 08:07 Pulse Oximetry 98 01/04/25 08:07 Oxygen Delivery Room Air 01/04/25 07:13 Discharge Plan Discharge Clinical Impression: Acute urticaria, Anxiety Patient Disposition: Home Condition: Stable Instructions: Antibiotic Form, Anxiety (ED) Additional Instructions: You were seen in the emergency department for rash and anxiety. Please continue treating the rash as you have been doing as it seems to be improving. Please follow-up with your primary care physician for further management anxiety. Return if develops thoughts of harming herself or others. Patient Language: Mauritanian Prescriptions: No Action atorvastatin 40 mg tablet 40 mg PO HS trazodone 50 mg tablet 50 mg PO DAILY hydrochlorothiazide 50 mg tablet 50 mg PO DAILY famotidine 20 mg tablet 20 mg PO DAILY losartan 100 mg tablet 100 mg PO DAILY lamotrigine 100 mg tablet 100 mg PO DAILY loratadine 10 mg tablet 10 mg PO DAILY hydroxyzine HCl 25 mg tablet 25 mg PO TID ondansetron 4 mg tablet,disintegrating 4 mg PO Q6-8H PRN (Reason: nausea and vomiting) Qty: 14 0RF aspirin 81 mg Tablet,Delayed Release (Dr/Ec) 81 mg PO QAM Qty: 30 0RF naproxen sodium [Anaprox DS] 550 mg tablet 550 mg PO Q12H PRN (Reason: pain) Qty: 14 0RF Follow-up/Referrals: Krissy,NICKOLAS Spangler [Primary Care Provider] - Stand Alone Forms: Work/School Release IP
== END 2025-01-04 09:37 | disposition home or self-care (01) ==
PROVIDERS: Emergency Provider Emergency Medicine; PCP Physician Assistant
DX: L50.9 Urticaria, unspecified (principal); F41.9 Anxiety disorder, unspecified; I10 Essential (primary) hypertension; E78.5 Hyperlipidemia, unspecified; F31.9 Bipolar disorder, unspecified; F17.210 Nicotine dependence, cigarettes, uncomplicated; F17.290 Nicotine dependence, other tobacco product, uncomplicated; Z90.49 Acquired absence of other specified parts of digestive tract
CPT/HCPCS: 96374; 96375; 99284; J1200; J3360

== ENCOUNTER 2025-06-19 07:27 | Emergency (ER) | payer BC, SELFPAY ==
[2025-06-19 06:28] VITALS: BP 141/69; PULSE 101; RESP 15; TEMP 36.6; O2SAT 100
--- NOTE | 2025-06-19 06:58 | PC.NURSE ---
pt taken to bathroom in W/C assisted by this RN
[2025-06-19 07:17] VITALS: BP 133/78; PULSE 78; RESP 13; O2SAT 100
--- NOTE | 2025-06-19 07:49 | ED_ITS ---
HPI - General Adult General Chief complaint: Back Pain/Injury Stated complaint: back pain History of Present Illness HPI narrative: 44-year-old female presents to the emergency department for evaluation for worsening left lower back and left leg pain. Patient reports the lower back and left hip pain radiates down her left leg. Patient states she was seen in outside hospital and started on diclofenac and methocarbamol. Patient states the pain was worsened this morning. And denies any associated numbness or weakness. Patient denies any loss of bowel or bladder control. Patient denies any prior history of back surgery. Related Data Home Medications ?Medication ?Instructions ?Recorded ?Confirmed ?Last Taken ?Type atorvastatin 40 mg tablet 40 mg PO HS 06/29/24 4 Unknown History famotidine 20 mg tablet 20 mg PO DAILY 06/29/2412/15 Unknown History hydrochlorothiazide 50 mg tablet 50 mg PO DAILY 07/27/24 Unknown History hydroxyzine HCl 25 mg tablet 25 mg PO TID 06/29/2412/15 Unknown History lamotrigine 100 mg tablet 100 mg PO DAILY 06/29/2412/15 Unknown History loratadine 10 mg tablet 10 mg PO DAILY 06/29/2412/15 Unknown History losartan 100 mg tablet 100 mg PO DAILY 06/29/2412/15 Unknown History trazodone 50 mg tablet 50 mg PO DAILY 06/29/2412/15 Unknown History Allergies Allergy/AdvReac Type Severity Reaction Status Date / Time carbamazepine Allergy Intermediate Rash Verified 06/19/25 07:18 oxcarbazepine Allergy Intermediate Rash Verified 06/19/25 07:18 aloe Allergy Anaphylaxis Verified 06/19/25 07:18 topiramate AdvReac Intermediate Headache Verified 06/19/25 07:18 Review of Systems Review of Systems: All systems reviewed & are unremarkable except as noted in HPI and below PMFSH Past Medical History Medical History Anxiety Dyslipidemia Hypertension Smoking Bipolar disorder Surgical History Surgical History History of cholecystectomy History of knee surgery left meniscus repair History of removal of ovarian cyst Social History Social History Smoking status: Current every day smoker Tobacco type: cigarettes and e-cigarettes/vaping Alcohol intake: never Substance use: current Substance use type: marijuana Do You Feel Safe in your Home?: Yes Lack of Transportation: No Lack of Food: Never True Current Housing: I Have Housing Concerned About Future Housing: No Difficulty Paying Gas/Electric Bills: No Difficulty Paying for Meds: No Currently Unemployed: No Education: Decline to Answer Difficulty w/ Childcare or Family Care: No Living arrangements: with family Gender identity (if verbalized by the patient): Female Spiritual care concerns: No Exam Narrative: APPEARANCE: Uncomfortable appearing HEAD: normocephalic, atraumatic. EYES: PERRLA/EOMI, conjunctivae clear. NOSE: Normal no drainage EARS:TMS clear with good light reflex. THROAT: Pharynx clear, no exudate. NECK: Supple. No adenopathy, no masses. RESPIRATORY: Airway patent, respirations nonlabored. Clear to auscultation bilaterally, no rales, rhonchi, wheezing. CARDIOVASCULAR: Regular rate and rhythm without murmurs rubs or gallops. ABDOMINAL: Soft, nontender, nondistended, normal bowel sounds MUSCULOSKELETAL: Left lower back tenderness to palpation, left buttock tenderness to palpation, pain with straight leg NEURO: Alert. Cranial nerves II through XII intact. Grossly intact SKIN: Warm, dry. Normal Color Course Vital Signs Vital signs: Vital Signs Temperature 97.9 F 06/19/25 06:28 Pulse Rate 101 H 06/19/25 06:28 Respiratory Rate 15 06/19/25 06:28 Blood Pressure 141/69 H 06/19/25 06:28 Pulse Oximetry 100 06/19/25 06:28 Oxygen Delivery Room Air 06/19/25 06:28 Temperature 98.2 F 06/19/25 08:06 Pulse Rate 80 06/19/25 08:06 Respiratory Rate 15 06/19/25 08:06 Blood Pressure 141/73 H 06/19/25 08:06 Pulse Oximetry 100 06/19/25 08:06 Oxygen Delivery Room Air 06/19/25 06:28 Medical Decision Making [facility] [place] Narrative Medical decision making narrative: 44-year-old female presents emergency department for evaluation for worsening left lower back pain that radiates down her left leg. Patient's exam is consistent with sciatica. Low concern for cauda equina or other spinal cord injury. Patient is neurologically intact. Patient did feel improved with treatment emergency department. Patient be discharged home with Medrol Dosepak and medications for pain control. Patient was encouraged close follow-up with her primary care physician. All questions concerns were addressed. Differential Diagnosis Differential Diagnosis: Muscular pain, back pain, lumbar strain, sciatica, cauda equina Vital Signs Vital Signs: Vital Signs Temperature 97.9 F 06/19/25 06:28 Pulse Rate 101 H 06/19/25 06:28 Respiratory Rate 15 06/19/25 06:28 Blood Pressure 141/69 H 06/19/25 06:28 Pulse Oximetry 100 06/19/25 06:28 Oxygen Delivery Room Air 06/19/25 06:28 Temperature 98.2 F 06/19/25 08:06 Pulse Rate 80 06/19/25 08:06 Respiratory Rate 15 06/19/25 08:06 Blood Pressure 141/73 H 06/19/25 08:06 Pulse Oximetry 100 06/19/25 08:06 Oxygen Delivery Room Air 06/19/25 06:28 Discharge Plan Discharge Clinical Impression: Sciatica Patient Disposition: Home Condition: Stable Instructions: Antibiotic Form, Sciatica (ED) Additional Instructions: Medrol Dosepak as directed. Continue your methocarbamol. [place] as needed for additional pain control. Have close follow-up with your primary care physician. Patient Language: Nepali Prescriptions: New hydrocodone-acetaminophen 5-325 mg tablet 1 tablet PO Q12H PRN (Reason: pain) Qty: 14 0RF methylprednisolone [Medrol (Dm)] 4 mg tablets,dose pack See Rx Instructions .ROUTE .COMPLEX Qty: 21 0RF Rx Instructions: for 6 days No Action atorvastatin 40 mg tablet 40 mg PO HS trazodone 50 mg tablet 50 mg PO DAILY hydrochlorothiazide 50 mg tablet 50 mg PO DAILY famotidine 20 mg tablet 20 mg PO DAILY losartan 100 mg tablet 100 mg PO DAILY lamotrigine 100 mg tablet 100 mg PO DAILY loratadine 10 mg tablet 10 mg PO DAILY hydroxyzine HCl 25 mg tablet 25 mg PO TID ondansetron 4 mg tablet,disintegrating 4 mg PO Q6-8H PRN (Reason: nausea and vomiting) Qty: 14 0RF aspirin 81 mg Tablet,Delayed Release (Dr/Ec) 81 mg PO QAM Qty: 30 0RF naproxen sodium [Anaprox DS] 550 mg tablet 550 mg PO Q12H PRN (Reason: pain) Qty: 14 0RF Follow-up/Referrals: Krissy,NICKOLAS Spangler [Primary Care Provider, Unknown] Stand Alone Forms: Work/School Release IP
[2025-06-19] MEDS: KETOROLAC 30 MG/ML VIAL (*BKC) IM (08:01)
[2025-06-19] MEDS: HYDROcodone/acetaminophen (*CRX) 5-325 MG TABLET 1 TAB PO (08:01)
[2025-06-19] MEDS: dexAMETHasone SOD PHOS INJ 10 MG/ML 1 ML VIAL IM (08:03)
[2025-06-19 08:06] VITALS: BP 141/73; PULSE 80; RESP 15; TEMP 36.8; O2SAT 100
== END 2025-06-19 08:08 | disposition home or self-care (01) ==
PROVIDERS: Emergency Provider Emergency Medicine; PCP Physician Assistant
DX: M54.30 Sciatica, unspecified side (principal); F17.290 Nicotine dependence, other tobacco product, uncomplicated; F12.90 Cannabis use, unspecified, uncomplicated
CPT/HCPCS: 96372; 99284; A9270; J1100; J1885